=== PATIENT | female | born 1980 | race Caucasian/White ===

== ENCOUNTER 2016-06-22 15:40 | Emergency (ER) | payer MEDICAID ==
[~2016-06-22] VITALS: Ht 170.2 cm; Wt 80.0 kg
[~2016-06-22 15:40] MED LIST: ALBUAER3 INH; AZIT500T2 PO; PRED20 PO
[2016-06-22 15:42] VITALS: BP 175/90; PULSE 97; RESP 20; TEMP 97.7; O2SAT 96
[2016-06-22] MEDS ORDERED: ONDANSETRON ODT 4 MG TAB PO ONE (17:15)
--- NOTE | 2016-06-22 17:18 | PD ---
HPI Chief Complaint: Cold / Flu Symptoms Time Seen by Provider: 17:17 Travel History International Travel<30 days: No Contact w/Intl Traveler<30days: No Traveled to known affect area: No History of Present Illness HPI Patient is a 30 sexual female presenting to the emergency for evaluation of a sore throat, cough, body aches. Patient states she has not taken her temperature but felt warm. She reported that she vomited twice today once at 3 AM the second time in the lobby here. Patient has been eating and drinking normally. She denies any abdominal pain, chest pain, shortness of breath. She reports a dull headache, no visual changes no dizziness. PFSH Past Medical History Asthma: Yes High Cholesterol: Yes Diabetes: Yes Diminished Hearing: No Respiratory: Yes (ASTHMA) Immunizations Current: Yes LMP: 06/15/16 : 6 Para: 3 Miscarriage: 2 : 1 Dilation and Curettage (D&C): Yes (X2) Tubal Ligation: Yes Past Surgical History Abdominal Surgery: Yes (HERNIA, CHOLEY) Cholecystectomy: Yes Oral Surgery: Yes Social History Alcohol Use: Yes (OCC) Tobacco Use: Yes (1/2) Substance Use: No Allergies-Medications (Allergen,Severity, Reaction): Coded Allergies: Symbicort (Verified Allergy, Unknown, HIVES, 06/22/16) Tramadol (Verified Adverse Reaction, Mild, N/V, 06/22/16) Reported Meds & Prescriptions Reported Meds & Active Scripts Active Review of Systems Except as stated in HPI: all other systems reviewed are Neg General / Constitutional: Positive: Fever (subjective) HENT: Positive: Headaches, Sore Throat, Congestion Cardiovascular: No: Chest Pain or Discomfort Respiratory: Positive: Cough, No: Shortness of Breath, Wheezing Gastrointestinal: Positive: Vomiting (2), No: Nausea, Diarrhea, Abdominal Pain Genitourinary: No: Dysuria Musculoskeletal: Positive: Myalgias Neurologic: No: Weakness, Dizziness, Syncope Physical Exam Narrative GENERAL: Well-developed, well-nourished, alert female. Resting comfortably in no acute distress. SKIN: Focused skin assessment warm/dry. HEAD: Atraumatic. Normocephalic. EYES: Pupils equal and round. No scleral icterus. No injection or drainage. ENT: No nasal bleeding or discharge. Mucous membranes pink and moist. Mild erythema to posterior pharynx with cobblestoning appearance. NECK: Trachea midline. No JVD. CARDIOVASCULAR: Regular rate and rhythm. No murmur appreciated. RESPIRATORY: No accessory muscle use. Clear to auscultation. Breath sounds equal bilaterally. GASTROINTESTINAL: Abdomen soft, non-tender, nondistended. Hepatic and splenic margins not palpable. MUSCULOSKELETAL: No obvious deformities. No clubbing. No cyanosis. No edema. NEUROLOGICAL: Awake and alert. No obvious cranial nerve deficits. Motor grossly within normal limits. Normal speech. PSYCHIATRIC: Appropriate mood and affect; insight and judgment normal. Data Data Last Documented VS Vital Signs Date Time Temp Pulse Resp B/P Pulse Ox O2 Delivery O2 Flow Rate FiO2 06/22/16 15:42 97.7 97 20 175/90 96 Room Air Orders Influenzae A/B Antigen (06/22/16 17:06) Group A Rapid Strep Screen (06/22/16 17:06) Ondansetron Odt (Zofran Odt) (06/22/16 17:15) Strep Culture (Group A) (06/22/16 13:40) MDM Medical Decision Making Medical Screen Exam Complete: Yes Emergency Medical Condition: Yes Interpretation(s) Vital Signs Date Time Temp Pulse Resp B/P Pulse Ox O2 Delivery O2 Flow Rate FiO2 06/22/16 15:42 97.7 97 20 175/90 96 Room Air Differential Diagnosis Influenza versus viral URI versus pneumonia versus asthma exacerbation versus strep Narrative Course Patient is a 36 year old female presented to the emergency room for evaluation of cold of flulike symptoms that started on Saturday. Patient's vital signs are stable, she is afebrile. She took DayQuil earlier this morning. Influenza and strep screen ordered and pending. Patient did vomit twice but is denying any abdominal pain, abdominal exam is benign. Patient is negative for influenza A or strep pharyngitis. Discussed with patient that her symptoms are most consistent with a viral syndrome. She is encouraged to rest, maintain adequate fluid intake, and treat her symptoms. Patient will be provided with prescription for ibuprofen, Zofran, and a backup antibiotic. Patient was encouraged to avoid using the antibiotic unless her symptoms persisted beyond 5- 7 days. Advised to complete full course of antibiotics as prescribed if she did begin to take it. Additionally patient was encouraged to return to emergency department for any new or worsening symptoms. Patient verbalized understanding of these instructions. Patient is stable for discharge. Diagnosis Primary Impression: Viral syndrome Referrals: Primary Care Physician 1 week Patient Instructions: General Instructions, Viral Syndrome (ED) Additional Instructions: Follow-up with your primary doctor Take medications as directed Return to emergency department for any new or worsening symptoms Continue symptomatic management, maintain adequate fluid intake, rest If you begin the antibiotic please complete full course of therapy even if you begin to feel better Med/Other Pt SpecificInfo: Prescription(s) given Scripts Azithromycin 250 Mg [id number] Mg PO DIRECTED #6 TAB Ref 0 Take 2 tabs (500 mg) on day 1 then 1 tab daily x 4 days. Prov:Kanwal Schwartz 06/22/16 Ondansetron Odt (Zofran Odt)4 Mg Tab4 Mg SL Q6HR PRN (Nausea/Vomiting) 3 Days Ref 0 Prov:Kanwal Schwartz 06/22/16 Ibuprofen 800 Mg [id number] Mg PO Q6HR PRN (PAIN) #40 TAB Ref 0 Prov:Kanwal Schwartz 06/22/16 Disposition: 01 DISCHARGE HOME Condition: Stable Kanwal Schwartz Jun 22, 2016 17:18
[2016-06-22] MEDS ORDERED: AZIT250T3 PO (18:26)
[2016-06-22] MEDS ORDERED: IBUP800T23 PO (18:26)
[2016-06-22] MEDS ORDERED: ZOFR4TAB3 SL (18:26)
== END 2016-06-22 18:36 | disposition home or self-care (01) ==
LOC: NETRI 15:40
DX: B34.9 Viral infection, unspecified (principal); R11.10 Vomiting, unspecified; J45.909 Unspecified asthma, uncomplicated; E11.9 Type 2 diabetes mellitus without complications; F17.210 Nicotine dependence, cigarettes, uncomplicated
CPT/HCPCS: 87081; 87804; 87880; 99283

== ENCOUNTER 2017-04-17 17:12 | Inpatient (IN) | payer OTHER ==
[~2017-04-17] VITALS: Ht 167.6 cm; Wt 92.1 kg
[~2017-04-17 17:12] MED LIST changes: -ALBUAER3 INH; +AZIT250T3 PO; -AZIT500T2 PO; +IBUP1TAB7 PO; -PRED20 PO; +ZOFR4TAB3 SL
[2017-04-17 18:29] VITALS: BP 163/78; PULSE 73; RESP 18; TEMP 98.3; O2SAT 97
--- NOTE | 2017-04-17 19:06 | PD ---
HPI Chief Complaint: Psychiatric Symptoms Time Seen by Provider: 18:27 Travel History International Travel<30 days: No Contact w/Intl Traveler<30days: No Traveled to known affect area: No History of Present Illness HPI 36-year-old female that presents to the ED for evaluation of Cuevas act. Patient was Cuevas acted by police secondary to apparently get any nausea, for the patient with family and stating that she wanted to hurt herself. Per the report given to me by ED nurse and patient she went to the hospital yesterday and was told that she had a heart condition. Apparently she has family members that she feels are not helping her and she had breaking point today where she basically told the family that she wanted to end it all. She denies actual plan. Per patient she told this to try to get help. She denies any depression. No history of anxiety. No history of Cuevas act in the past. She has a history of hypertension, cholesterol and asthma. She denies any shortness of breath or chest pain at this time. No other medical issues. Per Cuevas act she apparently wrote a note and was stating that she wanted to end it all and this is what she was Cuevas acted. No other medical issues at this time. Apparently symptoms have been worsening secondary to stressors at home for the past couple of days. PFSH Past Medical History Asthma: Yes High Cholesterol: Yes Diabetes: Yes Diminished Hearing: No Respiratory: Yes (ASTHMA) Immunizations Current: Yes : 6 Para: 3 Miscarriage: 2 : 1 Dilation and Curettage (D&C): Yes (X2) Tubal Ligation: Yes Past Surgical History Abdominal Surgery: Yes (HERNIA, CHOLEY) Cholecystectomy: Yes Oral Surgery: Yes Social History Alcohol Use: Yes (OCC) Tobacco Use: Yes (1/2) Substance Use: No Allergies-Medications (Allergen,Severity, Reaction): Coded Allergies: budesonide (Unverified Allergy, Unknown, HIVES, 11/06/16) formoterol (Unverified Allergy, Unknown, HIVES, 11/06/16) tramadol (Unverified Adverse Reaction, Mild, N/V, 11/06/16) Reported Meds & Prescriptions Reported Meds & Active Scripts Active Zofran Odt (Ondansetron Odt) 4 Mg Tab 4 Mg SL Q6HR PRN 3 Days Ibuprofen 800 Mg Tab 800 Mg PO Q6HR PRN Review of Systems Except as stated in HPI: all other systems reviewed are Neg Physical Exam Narrative GENERAL: SKIN: Warm and dry. HEAD: Atraumatic. Normocephalic. EYES: Pupils equal and round. No scleral icterus. No injection or drainage. ENT: No nasal bleeding or discharge. Mucous membranes pink and moist. Tongue is midline. No uvula deviation. NECK: Trachea midline. No JVD. CARDIOVASCULAR: Regular rate and rhythm. No murmurs, S3, S4. RESPIRATORY: No accessory muscle use. Clear to auscultation. Breath sounds equal bilaterally. GASTROINTESTINAL: Abdomen soft, non-tender, nondistended. Hepatic and splenic margins not palpable. MUSCULOSKELETAL: Extremities without clubbing, cyanosis, or edema. No obvious deformities. Full range of motion of the upper and lower extremities bilaterally. 2+ pulses bilaterally. NEUROLOGICAL: Awake and alert. No obvious cranial nerve deficits. Motor grossly within normal limits. Five out of 5 muscle strength in the arms and legs. Normal speech. PSYCHIATRIC: Appropriate mood and affect; insight and judgment normal. Data Data Last Documented VS Vital Signs Date Time Temp Pulse Resp B/P (MAP) Pulse Ox O2 Delivery O2 Flow Rate FiO2 04/17/17 18:29 98.3 73 18 163/78 (106) 97 Room Air Orders Orders Complete Blood Count With Diff (04/17/17 18:17) Comprehensive Metabolic Panel (04/17/17 18:17) Thyroid Stimulating Hormone (04/17/17 18:17) Psych Screen (04/17/17 18:17) Drug Screen, Random Urine (04/17/17 18:17) Alcohol (Ethanol) (04/17/17 18:17) Salicylates (Aspirin) (04/17/17 18:17) Tylenol (Acetaminophen) (04/17/17 18:17) Urinalysis - C+S If Indicated (04/17/17 20:40) Chest, Single Ap (04/17/17 ) Ed Urine Pregnancytest Poc (04/17/17 21:56) Labs Laboratory Tests Test 04/17/17 19:30 04/17/17 19:48 White Blood Count 26.9 TH/MM3 Red Blood Count 5.47 MIL/MM3 Hemoglobin 15.5 GM/DL Hematocrit 47.4 % Mean Corpuscular Volume 86.5 FL Mean Corpuscular Hemoglobin 28.3 PG Mean Corpuscular Hemoglobin Concent 32.7 % Red Cell Distribution Width 14.0 % Platelet Count 410 TH/MM3 Mean Platelet Volume 8.0 FL Neutrophils (%) (Auto) 66.9 % Lymphocytes (%) (Auto) 26.1 % Monocytes (%) (Auto) 6.0 % Eosinophils (%) (Auto) 0.6 % Basophils (%) (Auto) 0.4 % Neutrophils # (Auto) 18.0 TH/MM3 Lymphocytes # (Auto) 7.0 TH/MM3 Monocytes # (Auto) 1.6 TH/MM3 Eosinophils # (Auto) 0.2 TH/MM3 Basophils # (Auto) 0.1 TH/MM3 CBC Comment AUTO DIFF Differential Total Cells Counted 100 Neutrophils % (Manual) 70 % Band Neutrophils % 2 % Lymphocytes % 24 % Monocytes % 4 % Neutrophils # (Manual) 19.4 TH/MM3 Differential Comment FINAL DIFF MANUAL Platelet Estimate NORMAL Platelet Morphology Comment NORMAL Blood Urea Nitrogen 14 MG/DL Creatinine 0.78 MG/DL Random Glucose 78 MG/DL Total Protein 8.0 GM/DL Albumin 4.0 GM/DL Calcium Level 9.3 MG/DL Alkaline Phosphatase 86 U/L Aspartate Amino Transf (AST/SGOT) 13 U/L Alanine Aminotransferase (ALT/SGPT) 33 U/L Total Bilirubin 0.3 MG/DL Sodium Level 140 MEQ/L Potassium Level 3.9 MEQ/L Chloride Level 103 MEQ/L Carbon Dioxide Level 27.3 MEQ/L Anion Gap 10 MEQ/L Estimat Glomerular Filtration Rate 84 ML/MIN Thyroid Stimulating Hormone 3rd Gen 1.320 uIU/ML Salicylates Level 3.0 MG/DL Acetaminophen Level LESS THAN 2.0 MCG/ML Ethyl Alcohol Level LESS THAN 3 MG/DL Urine Color YELLOW Urine Turbidity CLEAR Urine pH 6.0 Urine Specific [place] 1.015 Urine Protein NEG mg/dL Urine Glucose (UA) NEG mg/dL Urine Ketones NEG mg/dL Urine Occult Blood MOD Urine Nitrite NEG Urine Bilirubin NEG Urine Urobilinogen LESS THAN 2.0 MG/DL Urine Leukocyte Esterase NEG Urine RBC 74 /hpf Urine WBC 2 /hpf Urine Squamous Epithelial Cells 1 /hpf Urine Amorphous Sediment RARE Urine Mucus FEW /lpf Microscopic Urinalysis Comment CULT NOT INDICATED Urine Opiates Screen NEG Urine Barbiturates Screen NEG Urine Amphetamines Screen NEG Urine Benzodiazepines Screen NEG Urine Cocaine Screen NEG Urine Cannabinoids Screen NEG MDM Medical Decision Making Medical Screen Exam Complete: Yes Emergency Medical Condition: Yes Medical Record Reviewed: Yes Interpretation(s) CBC & BMP Diagram 04/17/17 19:30 Total Protein 8.0, Albumin 4.0, Calcium Level 9.3, Alkaline Phosphatase 86, Aspartate Amino Transf (AST/SGOT) 13 L, Alanine Aminotransferase (ALT/SGPT) 33, Total Bilirubin 0.3 tox negative Differential Diagnosis Depression versus suicidal ideation versus anxiety versus adjustment disorder versus mood disorder versus bipolar disorder versus schizophrenia versus paranoid disorder versus psychosis versus substance abuse versus alcohol abuse versus alcohol induced psychosis versus homicidality addition versus cutting versus personality disorder Narrative Course 36-year-old female that presents to the ED for evaluation of psych. Patient was properly examined and was found to have signs and symptoms consistent psychiatric illness. No sign of acute medical distress. Labs were drawn. Patient will be medically clear. Okay to be seen by psych. Labs did show elevated white blood cell count. Was able to get the records from the patient' s previous evaluation of the hospital on patient does have a more significant level sick count elevation at the time. She was given steroids. I evaluated the patient again to make sure she does not have anything acute but she does not appear to have any signs of acute distress. No signs of infection other than what appears to be possible bronchitis. Patient unfortunately because of her Cuevas acted and her being upset about being here at this hospital refuse any more medical care. I had a discussion about this with my attending Dr. Hernandez who was made aware of findings and agrees that at this time patient can't be medically clear. Mental health screening was discussed with the patient. Diagnosis Primary Impression: Mood disorder Gregory Torres Apr 17, 2017 19:06
[2017-04-17 20:26] LABS: BASOPHIL # 0.1 TH/MM3 (0-0.2); BASOPHIL % 0.4 % (0.0-2.0); EOSINOPHIL # 0.2 TH/MM3 (0-0.4); EOSINOPHIL % 0.6 % (0.0-4.0); HEMATOCRIT 47.4 % (35.0-46.0); HEMOGLOBIN 15.5 GM/DL (11.6-15.3); LYMPH % 26.1 % (9.0-44.0); MEAN CELL VOLUME 86.5 FL (80.0-100.0); MEAN CORPUSCULAR HEMOGLOBIN 28.3 PG (27.0-34.0); MEAN CORPUSCULAR HGB CONC 32.7 % (32.0-36.0); MONOCYTE # 1.6 TH/MM3 (0-0.9); NEUT % 66.9 % (16.0-70.0); PLATELET COUNT 410 TH/MM3 (150-450); RED BLOOD COUNT 5.47 MIL/MM3 (4.00-5.30); WHITE BLOOD COUNT 26.9 TH/MM3 (4.0-11.0)
[2017-04-17 20:39] LABS: AST (GOT) 13 U/L (15-37); BICARBONATE 27.3 MEQ/L (21.0-32.0); BLOOD UREA NITROGEN 14 MG/DL (7-18); CALCIUM 9.3 MG/DL (8.5-10.1); CHLORIDE 103 MEQ/L (98-107); CREATININE 0.78 MG/DL (0.50-1.00); GLOMERULAR FILTRATION RATE 84 ML/MIN (>89); GLUCOSE,RANDOM 78 MG/DL (74-106); SODIUM (NA) 140 MEQ/L (136-145)
[2017-04-17 20:51] LABS: ALKALINE PHOSPHATASE 86 U/L (45-117); ALT (GPT) 33 U/L (10-53); TOTAL BILIRUBIN ADULT 0.3 MG/DL (0.2-1.0)
[2017-04-17 20:56] LABS: ACETAMINOPHEN LESS THAN 2.0 MCG/ML (10.0-30.0)
[2017-04-17 21:29] LABS: AMORPHOUS SEDIMENT, URINE RARE; BILIRUBIN, URINE NEG (NEG); BLOOD, URINE MOD (NEG); GLUCOSE,URINE NEG (NEG); KETONE, URINE NEG (NEG); MUCUS URINE FEW /lpf (OCC); NITRITE,URINE NEG (NEG); SQUAMOUS EPITHELIAL CELL URINE 1 /hpf (0-5); URINE COLOR YELLOW (YELLW/STRAW); URINE LEUKOCYTE ESTERASE NEG (NEG)
--- NOTE | 2017-04-17 21:54 | RADRPT ---
EXAM DATE/TIME: 04/17/2017 20:45 [facility] COMPARISON: CHEST SINGLE AP, February 22, 2016, 10:51. INDICATIONS : Fever, left sided chest pain starting today MEDICAL HISTORY : None. SURGICAL HISTORY : None. ENCOUNTER: Initial ACUITY: 1 day PAIN SCORE: 8/10 LOCATION: Left chest FINDINGS: A single view of the chest demonstrates the lungs to be symmetrically aerated without evidence of mas s, infiltrate or effusion. The cardiomediastinal contours are unremarkable. Osseous structures are intact. CONCLUSION: No acute disease. No significant change has occurred. Obi Interiano MD on April 17, 2017 at 21:51 Board Certified Radiologist. This report was verified electronically.
[2017-04-17 22:25] LABS: BANDS 2 % (0-6); LYMPHOCYTES 24 % (9-44); MONOCYTES 4 % (0-8); NEUTROPHIL # MANUAL DIFF 19.4 TH/MM3 (1.8-7.7); POLYS (SEG NEUTROPHILS) 70 % (16-70)
[2017-04-17 23:48] VITALS: BP 118/74; PULSE 58; RESP 18; TEMP 98.9; O2SAT 99
[2017-04-18] MEDS ORDERED: ALUMINUM/MAGNESIUM/SIMETH 30 ML CUP PO PRN (01:30)
[2017-04-18] MEDS ORDERED: ACETAMINOPHEN 325 MG TAB PO PRN (01:30)
[2017-04-18] MEDS ORDERED: NICOTINE 21 MG/24 HR PATCH T-DERMAL PRN (01:30)
[2017-04-18] MEDS ORDERED: diphenhydrAMINE HCL 50 MG CAP PO PRN (01:30)
[2017-04-18] MEDS ORDERED: BENZTROPINE MESYLATE 2 MG/2 ML VIAL IM PRN (01:30)
[2017-04-18] MEDS ORDERED: LORazepam 2 MG/ML VIAL IM PRN (01:30)
[2017-04-18] MEDS ORDERED: LORazepam 1 MG TAB PO PRN (01:30)
[2017-04-18] MEDS ORDERED: MAGNESIUM HYDROXIDE SUSP 30 ML CUP PO PRN (01:30)
[2017-04-18] MEDS ORDERED: BENZTROPINE MESYLATE 1 MG TAB PO PRN (01:30)
[2017-04-18 03:33] VITALS: BP 152/90; PULSE 74; RESP 18; TEMP 97.7; O2SAT 97
[2017-04-18 06:01] VITALS: BP 152/90; PULSE 74; RESP 18; TEMP 97.7; O2SAT 97
[2017-04-18 07:22] LABS: AUTOMATED NEUTROPHIL # 11.9 TH/MM3 (1.8-7.7); BASOPHIL # 0.1 TH/MM3 (0-0.2); BASOPHIL % 0.5 % (0.0-2.0); EOSINOPHIL # 0.4 TH/MM3 (0-0.4); EOSINOPHIL % 1.7 % (0.0-4.0); HEMATOCRIT 43.5 % (35.0-46.0); HEMOGLOBIN 14.3 GM/DL (11.6-15.3); LYMPH % 38.9 % (9.0-44.0); LYMPHOCYTE # 8.8 TH/MM3 (1.0-4.8); MEAN CELL VOLUME 85.6 FL (80.0-100.0); MEAN CORPUSCULAR HEMOGLOBIN 28.2 PG (27.0-34.0); MEAN CORPUSCULAR HGB CONC 32.9 % (32.0-36.0); MEAN PLATELET VOLUME 7.7 FL (7.0-11.0); MONO % 6.5 % (0.0-8.0); MONOCYTE # 1.5 TH/MM3 (0-0.9); NEUT % 52.4 % (16.0-70.0); PLATELET COUNT 341 TH/MM3 (150-450); RED BLOOD COUNT 5.07 MIL/MM3 (4.00-5.30); RED CELL DISTRIBUTION WIDTH 13.9 % (11.6-17.2); WHITE BLOOD COUNT 22.7 TH/MM3 (4.0-11.0)
[2017-04-18 08:05] LABS: BICARBONATE 28.5 MEQ/L (21.0-32.0); CALCIUM 8.5 MG/DL (8.5-10.1); CHOLESTEROL/ HDL RATIO 4.85 RATIO; CREATININE 0.77 MG/DL (0.50-1.00)
[2017-04-18] MEDS ORDERED: POTASSIUM CHLORIDE 20 MEQ CONTROLLED RELEASE TAB PO ONE (09:00)
[2017-04-18] MEDS ORDERED: ENALAPRILAT 1.25 MG/ML VIAL IV PUSH PRN (09:00)
[2017-04-18] MEDS ORDERED: RESP: ALBUTEROL 2.5 MG/IPRATROPIUM 0.5 MG NEB (PRN) NEB (09:00)
[2017-04-18] MEDS ORDERED: ALBUTEROL SULFATE 90 MCG/ACT HFA 8 GM INHALER INH PRN (09:00)
--- NOTE | 2017-04-18 09:00 | PD.CONS ---
[facility] Request[facility] By Dr. Argueta Reason for Consult Medical management Primary Care Physician Unknown Diagnoses: History of Present Illness Pt is a 36 yr old female w PMHx of asthma, HTN, DM, hypercholesterolemia is admitted under Backer Act for suicidal ideation to the med/psych unit. Pt very upset to be here and doesn't want to answer most of my questions. States that this "is all a misunderstanding" and that she shouldn't be here. When I ask more history she states "do I have to answer all these questions now? I have already said these things many times". I did explain to patient that I am consulted as part of the medical team and she only tells me that she was treated w steroids and abx for her cough which she feels is about the same. denies any sore throat, runny nose, fevers or chills, abdominal pain. Pt asks RN if she can be transferred to her "own room" where it is dark and quiet. After further questioning she did tell me that at [facility] they did an EKG and told her she needed to see a media marketing specialist but wasn't told why. Review of Systems ROS Limitations: Uncooperative, Poor Historian Except as stated in HPI: all other systems reviewed are Neg (from what I was able to gather through my history) Past Family Social History Allergies: Coded Allergies: budesonide (Unverified Allergy, Unknown, HIVES, 11/06/16) formoterol (Unverified Allergy, Unknown, HIVES, 11/06/16) tramadol (Unverified Adverse Reaction, Mild, N/V, 11/06/16) Past Medical History HTN, DM, hypercholesterolemia, asthma Past Surgical History cholecystectomy, hernia repair, tubal ligation Reported Medications Reported Meds & Active Scripts Active Zofran Odt (Ondansetron Odt) 4 Mg Tab 4 Mg SL Q6HR PRN 3 Days Ibuprofen 800 Mg Tab 800 Mg PO Q6HR PRN Family History didn't want to answer at first but does states that heart disease, DM, hypercholesterolemia and asthma run in the family Social History smokes 4 cigs to 2ppd depending on "her mood" denies any alcohol or illegal drug use Physical Exam Vital Signs Vital Signs Date Time Temp Pulse Resp B/P (MAP) Pulse Ox O2 Delivery O2 Flow Rate FiO2 04/18/17 06:01 97.7 74 18 152/90 (110) 97 04/18/17 03:33 97.7 74 18 152/90 (110) 97 04/18/17 02:28 04/17/17 23:48 98.9 58 18 118/74 (89) 99 Room Air 04/17/17 18:29 98.3 73 18 163/78 (106) 97 Room Air Physical Exam GENERAL: This is a female, sitting up in bed, appears upset SKIN: dry. HEAD: Atraumatic. Normocephalic. No temporal or scalp tenderness. EYES: Pupils equal round and reactive. Extraocular motions intact. ENT: Nose without drainage. Throat without erythema, tonsillar hypertrophy or exudate. Uvula midline. Airway patent. NECK: Trachea midline. CARDIOVASCULAR: Regular rate and rhythm without murmurs RESPIRATORY: Clear to auscultation. Breath sounds equal bilaterally. No wheezes GASTROINTESTINAL: Abdomen soft, non-tender, nondistended. No palpable masses. No guarding. MUSCULOSKELETAL: moves all extremities. NEUROLOGICAL: Awake and alert. Normal speech. Laboratory Laboratory Tests Test 04/17/17 19:30 04/17/17 19:48 04/18/17 07:00 White Blood Count 26.9 22.7 Red Blood Count 5.47 5.07 Hemoglobin 15.5 14.3 Hematocrit 47.4 43.5 Mean Corpuscular Volume 86.5 85.6 Mean Corpuscular Hemoglobin 28.3 28.2 Mean Corpuscular Hemoglobin Concent 32.7 32.9 Red Cell Distribution Width 14.0 13.9 Platelet Count 410 341 Mean Platelet Volume 8.0 7.7 Neutrophils (%) (Auto) 66.9 52.4 Lymphocytes (%) (Auto) 26.1 38.9 Monocytes (%) (Auto) 6.0 6.5 Eosinophils (%) (Auto) 0.6 1.7 Basophils (%) (Auto) 0.4 0.5 Neutrophils # (Auto) 18.0 11.9 Lymphocytes # (Auto) 7.0 8.8 Monocytes # (Auto) 1.6 1.5 Eosinophils # (Auto) 0.2 0.4 Basophils # (Auto) 0.1 0.1 CBC Comment AUTO DIFF AUTO DIFF Differential Total Cells Counted 100 Neutrophils % (Manual) 70 Band Neutrophils % 2 Lymphocytes % 24 Monocytes % 4 Neutrophils # (Manual) 19.4 Differential Comment FINAL DIFF MANUAL Platelet Estimate NORMAL Platelet Morphology Comment NORMAL Blood Urea Nitrogen 14 15 Creatinine 0.78 0.77 Random Glucose 78 91 Total Protein 8.0 Albumin 4.0 Calcium Level 9.3 8.5 Alkaline Phosphatase 86 Aspartate Amino Transf (AST/SGOT) 13 Alanine Aminotransferase (ALT/SGPT) 33 Total Bilirubin 0.3 Sodium Level 140 139 Potassium Level 3.9 3.4 Chloride Level 103 105 Carbon Dioxide Level 27.3 28.5 Anion Gap 10 6 Estimat Glomerular Filtration Rate 84 85 Thyroid Stimulating Hormone 3rd Gen 1.320 Beta HCG, Qualitative LESS THAN 1 Salicylates Level 3.0 Acetaminophen Level LESS THAN 2.0 Ethyl Alcohol Level LESS THAN 3 Urine Color YELLOW Urine Turbidity CLEAR Urine pH 6.0 Urine Specific [place] 1.015 Urine Protein NEG Urine Glucose (UA) NEG Urine Ketones NEG Urine Occult Blood MOD Urine Nitrite NEG Urine Bilirubin NEG Urine Urobilinogen LESS THAN 2.0 Urine Leukocyte Esterase NEG Urine RBC 74 Urine WBC 2 Urine Squamous Epithelial Cells 1 Urine Amorphous Sediment RARE Urine Mucus FEW Microscopic Urinalysis Comment CULT NOT INDICATED Urine Opiates Screen NEG Urine Barbiturates Screen NEG Urine Amphetamines Screen NEG Urine Benzodiazepines Screen NEG Urine Cocaine Screen NEG Urine Cannabinoids Screen NEG Triglycerides Level 267 Cholesterol Level 238 LDL Cholesterol 136 HDL Cholesterol 49.0 Cholesterol/HDL Ratio 4.85 Result Diagram: 04/18/17 0700 04/18/17 0700 Imaging Last Impressions Chest X-Ray 04/17/17 0000 Signed Impressions: Service Date/Time: Monday, April 17, 2017 20:45 - CONCLUSION: No acute disease. No significant change has occurred. Obi Interiano MD Assessment and Plan Assessment and Plan Suicidal ideation: under [place] Act. Management per psychiatry. Leukocytosis: WBC on admission was 26.9 now down to 22.7. Pt was recently treated w 3 days of steroids. this would most likely explain the elevated white count. Pt is afebrile, chest x-ray neg, u/a neg. no other sources of infection other than possible bronchitis which she is currently on azithromycin. I did order a peripheral smear. At this time, will continue to monitor, check CBC in AM. Mild hypokalemia: replaced. Asthma: stable. add duonebs prn. albuterol inh prn HTN: BPs in the 150-160"s. per pt she is not on any meds at home. I have started her on amlodipine 5mg po daily. add vasotec prn Hypercholesterolemia: TG 267, LDL 137, and HDL 49. Will place pt on low fat/ heart healthy diet ? heart problem: per pt she was told at [facility] that she needed to see a media marketing specialist, but she doesn't know why. will check EKG as we don't have anything on file. Per [place] records there is no mention of a cardiac diagnosis. Monitor as pt currently asymptomatic. Thank you for allowing me to take part of Mrs Garsia's care, the hospitalist service will continue to follow. Discussed Condition With patient, RN and Michell Lopez MD Apr 18, 2017 09:00
[2017-04-18 09:27] LABS: LYMPHOCYTES 39 % (9-44); MONOCYTES 3 % (0-8); NEUTROPHIL # MANUAL DIFF 12.5 TH/MM3 (1.8-7.7); POLYS (SEG NEUTROPHILS) 55 % (16-70)
[2017-04-18] MEDS: AZITHROMYCIN 250 MG TAB PO SCH (10:36)
[2017-04-18] MEDS: amLODIPine BESYLATE 5 MG TAB PO SCH (10:37)
[2017-04-18] MEDS: SERTRALINE HCL 50 MG TAB PO SCH (10:37)
[2017-04-18] MEDS: REMOVE OLD PATCH-NICOTINE T-DERMAL SCH (10:43)
--- NOTE | 2017-04-18 12:09 | PD.PSY.CON ---
Provisional Diagnosis Admission Date Apr 18, 2017 at 01:17 [place] I. Adjustment disorder with depressed mood vs major depressive disorder, single episode, severe without psychosis [place] II. Deferred [place] III. Asthma [place] IV. Family dynamic conflicts, history of bipolar disorder in the family [place] V. 45 History of Present Illness Service Psychiatry Consult Requested By Dr. Argueta Reason for Consult Second opinion Primary Care Physician Unknown HPI The patient is a 36-year-old woman, domiciled in [facility] with her fianc and 3 kids, unemployed, without no previous psychiatric history, no previous psychotic hospitalizations, no previous suicidal attempts, she denies the use of recreational drugs or alcohol, medical history of asthma, who initially presented to the ED for evaluation of Cuevas act. Patient was Cuevas acted by police secondary to apparently get any nausea, for the patient with family and stating that she wanted to hurt herself. Per the report given to me by ED nurse and patient she went to the hospital yesterday and was told that she had a heart condition. Apparently she has family members that she feels are not helping her and she had breaking point today where she basically told the family that she wanted to end it all. She denies actual plan. Per patient she told this to try to get help. Patient was admitted by Dr. Argueta. Was consulted to be for second opinion. On psychiatric evaluation today the patient is irritable, kind of oppositional, but could be engaged in a conversation. She reports that she is here for a mistake she did. She says that she was very frustrated and overwhelmed with her kids and her fianc. She wrote a suicide letter "just to get the attention and left the no home at I was , but my plan was not to commit suicide". She reports angry mood at the moment , she said that she feels very irritable and edgy, however, she denies suicidal and homicidal ideation, she denies visual and auditory hallucinations. The patient is logical, she is coherent and relevant. Oriented 3, she does confirm that she has been feeling down in the last month "due to economical situation and persistent conflicts with the family". She denies the use of illegal drugs and alcohol. Review of Systems Constitutional: DENIES: Diaphoretic episodes, Fatigue, Fever, Weight gain, Weight loss, Chills, Dizziness, Change in appetite, Night Sweats Endocrine: DENIES: Abnorml menstrual pattern, Heat/cold intolerance, Polydipsia , Polyuria, Polyphagia Eyes: DENIES: Blurred vision, Diplopia, Eye inflammation, Eye pain, Vision loss , Photosensitivity, Double Vision Ears, nose, mouth, throat: DENIES: Tinnitus, Hearing loss, Vertigo, Nasal discharge, Oral lesions, Throat pain, Hoarseness, Ear Pain, Running Nose, Epistaxis, Sinus Pain, Toothache, Odynophagia Respiratory: DENIES: Apneas, Cough, Snoring, Wheezing, Hemoptysis, Sputum production, Shortness of breath Cardiovascular: DENIES: Chest pain, Palpitations, Syncope, Dyspnea on Exertion , PND, Lower Extremity Edema, Orthopnea, Claudication Gastrointestinal: DENIES: Abdominal pain, Black stools, Bloody stools, Constipation, Diarrhea, Nausea, Vomiting, Difficulty Swallowing, Anorexia Genitourinary: DENIES: Abnormal vaginal bleeding, Dysmenorrhea, Dyspareunia, Sexual dysfunction, Urinary frequency, Urinary incontinence, Urgency, Hematuria , Dysuria, Nocturia, Vaginal discharge Musculoskeletal: DENIES: Joint pain, Muscle aches, Stiffness, Joint Swelling, Back pain, Neck pain Integumentary: DENIES: Abnormal pigmentation, Pruritus, Rash, Nail changes, Breast masses, Breast skin changes, Nipple discharge Hematologic/lymphatic: DENIES: Bruising, Lymphadenopathy Immunologic/allergic: DENIES: Eczema, Urticaria Neurologic: DENIES: Abnormal gait, Headache, Localized weakness, Paresthesias, Seizures, Speech Problems, Tremor, Poor Balance Psychiatric: COMPLAINS OF: Mood changes, Depression, DENIES: Anxiety, Confusion , Hallucinations, Agitation, Suicidal Ideation, Homicidal Ideation, Delusions Past Family Social History Coded Allergies: budesonide (Unverified Allergy, Unknown, HIVES, 11/06/16) formoterol (Unverified Allergy, Unknown, HIVES, 11/06/16) tramadol (Unverified Adverse Reaction, Mild, N/V, 11/06/16) Active Scripts Ondansetron Odt (Zofran Odt) 4 Mg Tab, 4 MG SL Q6HR Y for Nausea/Vomiting for 3 Days, TAB 0 Refills Prov:Kanwal Schwartz 06/22/16 Ibuprofen (Ibuprofen) 800 Mg Tab, 800 MG PO Q6HR Y for PAIN, #40 TAB 0 Refills Prov:Kanwal Schwartz 06/22/16 Discontinued Scripts Azithromycin (Azithromycin) 250 Mg Tab, 250 MG PO DIRECTED for Infection, #6 TAB 0 Refills Take 2 tabs (500 mg) on day 1 then 1 tab daily x 4 days. Prov:Kanwal Schwartz JOURDAN 06/22/16 Current Medications Medications (Trade) Dose Ordered Sig/Missy Route Start Time Stop Time Status Last Admin (Zithromax) 250 mg DAILY PO 04/18/17 09:00 04/18/17 10:36 (Ativan) 0.5 mg Q6H PRN PO 04/18/17 01:30 04/18/17 10:37 (Ativan Inj) 0.5 mg Q6H PRN IM 04/18/17 01:30 (Benadryl) 50 mg HS PRN PO 04/18/17 01:30 (Tylenol) 650 mg Q4H PRN PO 04/18/17 01:30 04/18/17 10:42 (Milk Of Magnesia Liq) 30 ml DAILY PRN PO 04/18/17 01:30 (Mag-Al Plus Susp Liq) 30 ml Q6H PRN PO 04/18/17 01:30 (Habitrol 21 Mg Patch.24 Hr) 1 patch DAILY PRN T-DERMAL 04/18/17 01:30 (Cogentin) 1 mg Q12H PRN PO 04/18/17 01:30 (Cogentin Inj) 1 mg Q12H PRN IM 04/18/17 01:30 Miscellaneous Information 1 DAILY T-DERMAL 04/18/17 09:00 (Norvasc) 5 mg DAILY PO 04/18/17 09:00 04/18/17 10:37 (Vasotec Inj) 1.25 mg Q6H PRN IV PUSH 04/18/17 09:00 (Duoneb Neb) 1 ampule Q6HR NEB PRN NEB 04/18/17 09:00 (Proair Hfa Inh) 2 puff Q6H PRN INH 04/18/17 09:00 (Zoloft) 50 mg DAILY PO 04/18/17 09:00 04/18/17 10:37 Family Psych History Patient has a sister with bipolar disorder Social History She was born in [place], she lives in [facility] with her fianc and 3 kids, she is unemployed, highest level of education is in Physical Exam Vital Signs Vital Signs Date Time Temp Pulse Resp B/P (MAP) Pulse Ox O2 Delivery O2 Flow Rate FiO2 04/18/17 06:01 97.7 74 18 152/90 (110) 97 04/17/17 23:48 Room Air I/O 04/18/17 04/18/17 04/19/17 08:00 16:00 00:00 Intake Total 360 ml Balance 360 ml Lab Results Test 04/17/17 19:30 04/17/17 19:48 04/18/17 07:00 White Blood Count 26.9 TH/MM3 22.7 TH/MM3 Red Blood Count 5.47 MIL/MM3 5.07 MIL/MM3 Hemoglobin 15.5 GM/DL 14.3 GM/DL Hematocrit 47.4 % 43.5 % Mean Corpuscular Volume 86.5 FL 85.6 FL Mean Corpuscular Hemoglobin 28.3 PG 28.2 PG Mean Corpuscular Hemoglobin Concent 32.7 % 32.9 % Red Cell Distribution Width 14.0 % 13.9 % Platelet Count 410 TH/MM3 341 TH/MM3 Mean Platelet Volume 8.0 FL 7.7 FL Neutrophils (%) (Auto) 66.9 % 52.4 % Lymphocytes (%) (Auto) 26.1 % 38.9 % Monocytes (%) (Auto) 6.0 % 6.5 % Eosinophils (%) (Auto) 0.6 % 1.7 % Basophils (%) (Auto) 0.4 % 0.5 % Neutrophils # (Auto) 18.0 TH/MM3 11.9 TH/MM3 Lymphocytes # (Auto) 7.0 TH/MM3 8.8 TH/MM3 Monocytes # (Auto) 1.6 TH/MM3 1.5 TH/MM3 Eosinophils # (Auto) 0.2 TH/MM3 0.4 TH/MM3 Basophils # (Auto) 0.1 TH/MM3 0.1 TH/MM3 CBC Comment AUTO DIFF AUTO DIFF Differential Total Cells Counted 100 100 Neutrophils % (Manual) 70 % 55 % Band Neutrophils % 2 % Lymphocytes % 24 % 39 % Monocytes % 4 % 3 % Neutrophils # (Manual) 19.4 TH/MM3 12.5 TH/MM3 Differential Comment FINAL DIFF MANUAL FINAL DIFF MANUAL Platelet Estimate NORMAL NORMAL Platelet Morphology Comment NORMAL NORMAL Blood Urea Nitrogen 14 MG/DL 15 MG/DL Creatinine 0.78 MG/DL 0.77 MG/DL Random Glucose 78 MG/DL 91 MG/DL Total Protein 8.0 GM/DL Albumin 4.0 GM/DL Calcium Level 9.3 MG/DL 8.5 MG/DL Alkaline Phosphatase 86 U/L Aspartate Amino Transf (AST/SGOT) 13 U/L Alanine Aminotransferase (ALT/SGPT) 33 U/L Total Bilirubin 0.3 MG/DL Sodium Level 140 MEQ/L 139 MEQ/L Potassium Level 3.9 MEQ/L 3.4 MEQ/L Chloride Level 103 MEQ/L 105 MEQ/L Carbon Dioxide Level 27.3 MEQ/L 28.5 MEQ/L Anion Gap 10 MEQ/L 6 MEQ/L Estimat Glomerular Filtration Rate 84 ML/MIN 85 ML/MIN Thyroid Stimulating Hormone 3rd Gen 1.320 uIU/ML Beta HCG, Qualitative LESS THAN 1 MIU/ML Salicylates Level 3.0 MG/DL Acetaminophen Level LESS THAN 2.0 MCG/ML Ethyl Alcohol Level LESS THAN 3 MG/DL Urine Color YELLOW Urine Turbidity CLEAR Urine pH 6.0 Urine Specific [place] 1.015 Urine Protein NEG mg/dL Urine Glucose (UA) NEG mg/dL Urine Ketones NEG mg/dL Urine Occult Blood MOD Urine Nitrite NEG Urine Bilirubin NEG Urine Urobilinogen LESS THAN 2.0 MG/DL Urine Leukocyte Esterase NEG Urine RBC 74 /hpf Urine WBC 2 /hpf Urine Squamous Epithelial Cells 1 /hpf Urine Amorphous Sediment RARE Urine Mucus FEW /lpf Microscopic Urinalysis Comment CULT NOT INDICATED Urine Opiates Screen NEG Urine Barbiturates Screen NEG Urine Amphetamines Screen NEG Urine Benzodiazepines Screen NEG Urine Cocaine Screen NEG Urine Cannabinoids Screen NEG Eosinophils % 3 % Red Cell Morphology Comment NORMAL Blood Smear Pathologist Review Triglycerides Level 267 MG/DL Cholesterol Level 238 MG/DL LDL Cholesterol 136 MG/DL HDL Cholesterol 49.0 MG/DL Cholesterol/HDL Ratio 4.85 RATIO Mental Status Examination Appearance: Appropriate Consciousness: Alert Orientation: x4 Motor Activity: Normal gait Speech: Unremarkable Language: Adequate Fund of Knowledge: Adequate Attention and Concentration: Adequate Memory: Unremarkable Mood: Sad Affect: Irritable Thought Process & Associations: Intact Thought Content: Appropriate Hallucination Type: None Delusion Type: None Suicidal Ideation: No Suicidal Plan: No Suicidal Intention: No Homicidal Ideation: No Homicidal Plan: No Homicidal Intention: No Insight: Poor Judgment: Poor Assessment & Plan Problem List: (1) Adjustment disorder with depressed mood ICD Codes: F43.21 - Adjustment disorder with depressed mood Assessment & Plan: I have seen and examined this patient. Reviewed the documentation, discussed with Dr. Argueta. I agree and concur with his assessment and plan. Assessment & Plan Estimated LOS: Madi Rivera MD Apr 18, 2017 12:09
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
[2017-04-18 16:35] LABS: HEMOGLOBIN A1C 5.8 % (4.3-6.0)
[2017-04-18 19:12] VITALS: BP 126/68; PULSE 86; RESP 18; TEMP 97.9; O2SAT 97
[2017-04-19 06:07] VITALS: BP 132/79; PULSE 65; RESP 16; TEMP 97.9; O2SAT 97
[2017-04-19 07:47] LABS: AUTOMATED NEUTROPHIL # 8.4 TH/MM3 (1.8-7.7); BASOPHIL # 0.1 TH/MM3 (0-0.2); BASOPHIL % 0.6 % (0.0-2.0); EOSINOPHIL # 0.4 TH/MM3 (0-0.4); EOSINOPHIL % 2.5 % (0.0-4.0); HEMATOCRIT 43.5 % (35.0-46.0); HEMOGLOBIN 14.6 GM/DL (11.6-15.3); LYMPH % 39.4 % (9.0-44.0); LYMPHOCYTE # 6.5 TH/MM3 (1.0-4.8); MEAN CELL VOLUME 86.2 FL (80.0-100.0); MEAN CORPUSCULAR HGB CONC 33.6 % (32.0-36.0); MONO % 6.2 % (0.0-8.0); NEUT % 51.3 % (16.0-70.0); PLATELET COUNT 366 TH/MM3 (150-450); RED BLOOD COUNT 5.05 MIL/MM3 (4.00-5.30); RED CELL DISTRIBUTION WIDTH 13.8 % (11.6-17.2); WHITE BLOOD COUNT 16.4 TH/MM3 (4.0-11.0)
--- NOTE | 2017-04-19 07:56 | HHI.PYPN ---
Subjective Remarks Patient seen for follow-up, chart reviewed. Discussion she staff reported the patient slept well with no behavioral disturbances. Patient was found lying in hospital bed noted to be calm and cooperative. Patient states stated that she had steps to last evening but feels fairly rested today. Patient continues to have headaches which she takes, last evening which helped. Patient reports her mood being "good" but didn't stay being "emotional last night" after she had visit from her fianc which went well but had a phone call from her sister which she was upset about. Patient states that her reason to live our for her kids and wanting to see them graduate as well as her wanted to visit certain places travel. Patient this time denies any SI, HI, AVH or delusions. Review of Systems Except as stated in HPI: all other systems reviewed are Neg Mental Status Examination Appearance: Appropriate Consciousness: Alert Orientation: x4 Motor Activity: Normal gait Speech: Unremarkable Language: Adequate Fund of Knowledge: Adequate Attention and Concentration: Adequate Memory: Unremarkable Mood: Sad Affect: Sad Thought Process & Associations: Intact Thought Content: Appropriate Hallucination Type: None Delusion Type: None Suicidal Ideation: No Suicidal Plan: No Suicidal Intention: No Homicidal Ideation: No Homicidal Plan: No Homicidal Intention: No Insight: Poor Judgment: Poor Results Labs Test 04/19/17 06:40 Vitals/IOs Vital Signs Date Time Temp Pulse Resp B/P (MAP) Pulse Ox O2 Delivery O2 Flow Rate FiO2 04/19/17 06:07 97.9 65 16 132/79 (96) 97 04/17/17 23:48 Room Air Assessment & Plan Problem List: (1) Adjustment disorder with depressed mood ICD Codes: F43.21 - Adjustment disorder with depressed mood Assessment & Plan Patient this time continues to be noted to be tearful during interview, depressed but denying suicidal ideations at this time. We'll add trazodone 50 mg by mouth at bedtime for sleep disturbance, continue sertraline 50 mg by mouth daily for depression. Continue to monitor mood and behavior. Continue to encourage patient to participate in groups and activities and maintain personal hygiene on the unit. Discharge planning in progress Justification for Cont. Inpt. At risk for further decompensation if at lower level of care Discharge Planning Back to her residence aMrcos Argueta MD Apr 19, 2017 07:56
--- NOTE | 2017-04-19 08:42 | HHI.PR ---
Subjective Remarks Patient is in the bed she appears in acute distress at this time. She complains of frontal headaches on and off. No change in vision no motor or sensory deficit. Denies any chest pain or shortness of breath nausea vomiting diarrhea constipation. No fever or chills. Eating fairly well. Objective Vitals Vital Signs Date Time Temp Pulse Resp B/P (MAP) Pulse Ox O2 Delivery O2 Flow Rate FiO2 04/19/17 06:07 97.9 65 16 132/79 (96) 97 04/18/17 19:12 97.9 86 18 126/68 (87) 97 I/O 04/18/17 04/18/17 04/18/17 04/19/17 04/19/17 04/19/17 07:00 15:00 23:00 07:00 15:00 23:00 Intake Total 360 ml 960 ml Balance 360 ml 960 ml Intake Oral 360 ml 960 ml Result Diagram: 04/19/17 0640 04/18/17 0700 Imaging Last Impressions Chest X-Ray 04/17/17 0000 Signed Impressions: Service Date/Time: Monday, April 17, 2017 20:45 - CONCLUSION: No acute disease. No significant change has occurred. Obi Interiano MD Objective Remarks GENERAL: This is a female, in the bed, appears n nad. HEAD: Atraumatic. Normocephalic. No temporal or scalp tenderness. EYES: Pupils equal round and reactive. Extraocular motions intact. CARDIOVASCULAR: Regular rate and rhythm without murmurs RESPIRATORY: Clear to auscultation. Breath sounds equal bilaterally. No wheezes GASTROINTESTINAL: Abdomen soft, non-tender, nondistended. No palpable masses. No guarding. MUSCULOSKELETAL: moves all extremities. NEUROLOGICAL: Awake and alert. Normal speech. A/P Assessment and Plan Suicidal ideation: under [employer] Act. Management per psychiatry. Leukocytosis: WBC on admission was 26.9 trending down. 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 Pt is afebrile, chest x-ray neg, u/a neg. No other sources of infection other than possible bronchitis which she is currently on azithromycin. Peripheral smear reviewed and normal. At this time, will continue to monitor, check CBC in AM. Mild hypokalemia: replaced. Asthma: stable. add duonebs prn. albuterol inh prn HTN: BPs in the 150-160"s on admission. Per pt she is not on any meds at home. BP better controlled, continue to monitor and adjust meds as need. Continue amlodipine 5mg po daily, vasotec prn Hypercholesterolemia: TG 267, LDL 137, and HDL 49. Will place pt on low fat/ heart healthy diet ? heart problem: per pt she was told at [facility] that she needed to see a it communications specialist, but she doesn't know why. EKG normal. Per [place] records there is no mention of a cardiac diagnosis. Monitor as pt currently asymptomatic. Thank you for allowing me to take part of Mrs Garsia's care, we will continue to follow. Discussed Condition With patient, nurse Lucía Simpson MD Apr 19, 2017 08:42
[2017-04-19] MEDS: amLODIPine BESYLATE 5 MG TAB PO SCH (08:48)
[2017-04-19] MEDS: AZITHROMYCIN 250 MG TAB PO SCH (08:48)
[2017-04-19] MEDS: SERTRALINE HCL 50 MG TAB PO SCH (08:48)
[2017-04-19 08:50] LABS: BANDS 2 % (0-6); LYMPHOCYTES 40 % (9-44); METAMYELOCYTES 1 % (0-1); MONOCYTES 4 % (0-8); MYELOCYTES 1 % (0-0); POLYS (SEG NEUTROPHILS) 51 % (16-70)
[2017-04-19] MEDS: REMOVE OLD PATCH-NICOTINE T-DERMAL SCH (09:00)
--- NOTE | 2017-04-19 10:27 | EKG ---
Date Performed: 04/18/2017 Time Performed: 12:07:47 PTAGE: 36 years EKG: Sinus rhythm NONSPECIFIC T-WAVE ABNORMALITY BORDERLINE ECG NO PREVIOUS TRACING DOCTOR: Reji Leon Interpretating Date/Time 04/19/2017 10:26:15
[2017-04-19] MEDS: traZODone HCL 50 MG TAB PO SCH (21:29)
[2017-04-20 05:54] VITALS: BP 133/73; PULSE 65; RESP 18; TEMP 97.4; O2SAT 96
--- NOTE | 2017-04-20 07:59 | HHI.PYPN ---
Subjective Remarks Patient seen in her room with nurse Akiko, chart reviewed, patient compliant medications. Patient laying in bed with a somewhat guarded irritable attitude. Drinks some resistance to discussing the reasons for this hospitalization. Except as a she has teenagers. She did denies suicidality to me at this time. For now continue treatment no change Review of Systems Except as stated in HPI: all other systems reviewed are Neg Mental Status Examination Appearance: Appropriate Consciousness: Alert Orientation: x4 Motor Activity: Normal gait Speech: Unremarkable Language: Adequate Fund of Knowledge: Adequate Attention and Concentration: Adequate Memory: Unremarkable Mood: Sad Affect: Sad Thought Process & Associations: Intact Thought Content: Appropriate Hallucination Type: None Delusion Type: None Suicidal Ideation: No Suicidal Plan: No Suicidal Intention: No Homicidal Ideation: No Homicidal Plan: No Homicidal Intention: No Insight: Poor Judgment: Poor Results Vitals/IOs Vital Signs Date Time Temp Pulse Resp B/P (MAP) Pulse Ox O2 Delivery O2 Flow Rate FiO2 04/20/17 05:54 97.4 65 18 133/73 (93) 96 04/17/17 23:48 Room Air Assessment & Plan Problem List: (1) Adjustment disorder with depressed mood ICD Codes: F43.21 - Adjustment disorder with depressed mood Assessment & Plan Estimated LOS: days patient continues depressed somewhat irritable. All denies suicidality mood remains intense angry and depressed now continue treatment Justification for Cont. Inpt. At this time patient will decompensate and placed in the lower level of care Discharge Planning Probable return home to family Vu Nguyễn MD Apr 20, 2017 07:59
--- NOTE | 2017-04-20 08:02 | HHI.PR ---
Subjective Remarks Patient is sleepy. Urine distress. Still with headaches, improving some. No fever or chills, denies cough, no nausea or vomiting no diarrhea or constipation. Objective Vitals Vital Signs Date Time Temp Pulse Resp B/P (MAP) Pulse Ox O2 Delivery O2 Flow Rate FiO2 04/20/17 05:54 97.4 65 18 133/73 (93) 96 I/O 04/19/17 04/19/17 04/19/17 04/20/17 04/20/17 04/20/17 07:00 15:00 23:00 07:00 15:00 23:00 Intake Total 720 ml Balance 720 ml Intake Oral 720 ml Result Diagram: 04/19/17 0640 04/18/17 0700 Imaging Last Impressions Chest X-Ray 04/17/17 0000 Signed Impressions: Service Date/Time: Monday, April 17, 2017 20:45 - CONCLUSION: No acute disease. No significant change has occurred. Obi Interiano MD Objective Remarks GENERAL: This is a female, in the bed, appears n nad. HEAD: Atraumatic. Normocephalic. No temporal or scalp tenderness. EYES: Pupils equal round and reactive. Extraocular motions intact. CARDIOVASCULAR: Regular rate and rhythm without murmurs RESPIRATORY: Clear to auscultation. Breath sounds equal bilaterally. No wheezes GASTROINTESTINAL: Abdomen soft, non-tender, nondistended. No palpable masses. No guarding. MUSCULOSKELETAL: moves all extremities. NEUROLOGICAL: Awake and alert. Normal speech. A/P Assessment and Plan Suicidal ideation: under Backer Act. Management per psychiatry. Leukocytosis: WBC on admission was 26.9, trending down. 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 Pt is afebrile, chest x-ray neg, u/a neg. No other sources of infection other than possible bronchitis which she is currently on azithromycin. Peripheral smear reviewed and normal. At this time, will continue to monitor, check CBC in AM. Mild hypokalemia: replaced. Asthma: stable. add duonebs prn. albuterol inh prn HTN: BPs in the 150-160"s on admission. Per pt she is not on any meds at home. BP better controlled, continue to monitor and adjust meds as need. Continue amlodipine 5mg po daily, vasotec prn Hypercholesterolemia: TG 267, LDL 137, and HDL 49. Will place pt on low fat/ heart healthy diet ? heart problem: per pt she was told at [facility] that she needed to see a design specialist, but she doesn't know why. EKG normal. Per [place] records there is no mention of a cardiac diagnosis. Monitor as pt currently asymptomatic. Thank you for allowing me to take part of Mrs Garsia's care, we will continue to follow. Discussed Condition With patient, nurse Lucía Simpson MD Apr 20, 2017 08:02
[2017-04-20] MEDS: REMOVE OLD PATCH-NICOTINE T-DERMAL SCH (09:00)
[2017-04-20] MEDS: SERTRALINE HCL 50 MG TAB PO SCH (09:47)
[2017-04-20] MEDS: amLODIPine BESYLATE 5 MG TAB PO SCH (09:47)
[2017-04-20] MEDS: AZITHROMYCIN 250 MG TAB PO SCH (09:47)
[2017-04-20 10:32] LABS: AUTOMATED NEUTROPHIL # 10.7 TH/MM3 (1.8-7.7); BASOPHIL # 0.1 TH/MM3 (0-0.2); BASOPHIL % 0.8 % (0.0-2.0); EOSINOPHIL # 0.4 TH/MM3 (0-0.4); EOSINOPHIL % 2.2 % (0.0-4.0); HEMATOCRIT 41.8 % (35.0-46.0); HEMOGLOBIN 14.9 GM/DL (11.6-15.3); LYMPH % 26.9 % (9.0-44.0); LYMPHOCYTE # 4.5 TH/MM3 (1.0-4.8); MEAN CELL VOLUME 84.9 FL (80.0-100.0); MEAN CORPUSCULAR HEMOGLOBIN 30.2 PG (27.0-34.0); MEAN CORPUSCULAR HGB CONC 35.5 % (32.0-36.0); MEAN PLATELET VOLUME 7.6 FL (7.0-11.0); NEUT % 64.1 % (16.0-70.0); PLATELET COUNT 317 TH/MM3 (150-450); RED BLOOD COUNT 4.93 MIL/MM3 (4.00-5.30); RED CELL DISTRIBUTION WIDTH 13.5 % (11.6-17.2); WHITE BLOOD COUNT 16.8 TH/MM3 (4.0-11.0)
[2017-04-20 18:44] VITALS: BP 132/88; PULSE 72; RESP 18; TEMP 97.5; O2SAT 97
[2017-04-20] MEDS: traZODone HCL 50 MG TAB PO SCH (20:18)
[2017-04-21 06:19] VITALS: BP 130/80; PULSE 85; RESP 16; TEMP 97.7; O2SAT 96
--- NOTE | 2017-04-21 07:38 | HHI.PR ---
Subjective Remarks Headache improved. Says she is coughing some yellow sputum. Will check sputum cultures. Continue azithtomycin. No fever or chill overnight. Fels nauseated last night. Able to eat breakfast today. No n/v/d/c. Objective Vitals Vital Signs Date Time Temp Pulse Resp B/P (MAP) Pulse Ox O2 Delivery O2 Flow Rate FiO2 04/21/17 06:19 97.7 85 16 130/80 (97) 96 04/20/17 18:44 97.5 72 18 132/88 (103) 97 I/O 04/20/17 04/20/17 04/20/17 04/21/17 04/21/17 04/21/17 07:00 15:00 23:00 07:00 15:00 23:00 Intake Total 480 ml Balance 480 ml Intake Oral 480 ml Result Diagram: 04/20/17 1011 04/18/17 0700 Imaging Last Impressions Chest X-Ray 04/17/17 0000 Signed Impressions: Service Date/Time: Monday, April 17, 2017 20:45 - CONCLUSION: No acute disease. No significant change has occurred. Obi Interiano MD Objective Remarks GENERAL: This is a female, in the bed, appears n nad. HEAD: Atraumatic. Normocephalic. No temporal or scalp tenderness. EYES: Pupils equal round and reactive. Extraocular motions intact. CARDIOVASCULAR: Regular rate and rhythm without murmurs RESPIRATORY: Clear to auscultation. Breath sounds equal bilaterally. No wheezes GASTROINTESTINAL: Abdomen soft, non-tender, nondistended. No palpable masses. No guarding. MUSCULOSKELETAL: moves all extremities. NEUROLOGICAL: Awake and alert. Normal speech. A/P Assessment and Plan Suicidal ideation: under [employer]er Act. Management per psychiatry. Leukocytosis: WBC on admission was 26.9, trending down. 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 Pt is afebrile, chest x-ray neg, u/a neg. Check sputum cultures. No other sources of infection other than possible bronchitis which she is currently on azithromycin. Peripheral smear reviewed and normal. At this time, will continue to monitor, check CBC in AM. Mild hypokalemia: replaced. Asthma: stable. add duonebs prn. albuterol inh prn HTN: BPs in the 150-160"s on admission. Per pt she is not on any meds at home. BP better controlled, continue to monitor and adjust meds as need. Continue amlodipine 5mg po daily, vasotec prn Hypercholesterolemia: TG 267, LDL 137, and HDL 49. Will place pt on low fat/ heart healthy diet Nausea: Antiemetics as need. ? heart problem: per pt she was told at [facility] that she needed to see a research compliance specialist, but she doesn't know why. EKG normal. Per [place] records there is no mention of a cardiac diagnosis. Monitor as pt currently asymptomatic. Thank you for allowing me to take part of Mrs Garsia's care, we will continue to follow. Discussed Condition With patient, nurse Lucía Simpson MD Apr 21, 2017 07:38
--- NOTE | 2017-04-21 07:54 | HHI.PYPN ---
Subjective Remarks Patient seen in her room with floor staff, chart reviewed, patient compliant medications. Patient slept well last night is no issues overnight. She still somewhat guarded needing encouragement for medication compliance. Now continue treatment Review of Systems Except as stated in HPI: all other systems reviewed are Neg Mental Status Examination Appearance: Appropriate Consciousness: Alert Orientation: x4 Motor Activity: Normal gait Speech: Unremarkable Language: Adequate Fund of Knowledge: Adequate Attention and Concentration: Adequate Memory: Unremarkable Mood: Sad Affect: Sad Thought Process & Associations: Intact Thought Content: Appropriate Hallucination Type: None Delusion Type: None Suicidal Ideation: No Suicidal Plan: No Suicidal Intention: No Homicidal Ideation: No Homicidal Plan: No Homicidal Intention: No Insight: Poor Judgment: Poor Results Labs Test 04/20/17 10:11 White Blood Count 16.8 TH/MM3 Red Blood Count 4.93 MIL/MM3 Hemoglobin 14.9 GM/DL Hematocrit 41.8 % Mean Corpuscular Volume 84.9 FL Mean Corpuscular Hemoglobin 30.2 PG Mean Corpuscular Hemoglobin Concent 35.5 % Red Cell Distribution Width 13.5 % Platelet Count 317 TH/MM3 Mean Platelet Volume 7.6 FL Neutrophils (%) (Auto) 64.1 % Lymphocytes (%) (Auto) 26.9 % Monocytes (%) (Auto) 6.0 % Eosinophils (%) (Auto) 2.2 % Basophils (%) (Auto) 0.8 % Neutrophils # (Auto) 10.7 TH/MM3 Lymphocytes # (Auto) 4.5 TH/MM3 Monocytes # (Auto) 1.0 TH/MM3 Eosinophils # (Auto) 0.4 TH/MM3 Basophils # (Auto) 0.1 TH/MM3 CBC Comment DIFF FINAL Differential Comment Vitals/IOs Vital Signs Date Time Temp Pulse Resp B/P (MAP) Pulse Ox O2 Delivery O2 Flow Rate FiO2 04/21/17 06:19 97.7 85 16 130/80 (97) 96 04/17/17 23:48 Room Air Assessment & Plan Problem List: (1) Adjustment disorder with depressed mood ICD Codes: F43.21 - Adjustment disorder with depressed mood Assessment & Plan Estimated LOS: days patient still somewhat guarded and irritable though she had a good night slept well with no behavior problems. Compliant medications for now continue treatment Justification for Cont. Inpt. At this time patient will decompensate if placed in a lower level of care Discharge Planning To Be determined Vu Nguyễn MD Apr 21, 2017 07:54
[2017-04-21 08:46] LABS: BASOPHIL # 0.1 TH/MM3 (0-0.2); BASOPHIL % 0.5 % (0.0-2.0); EOSINOPHIL # 0.4 TH/MM3 (0-0.4); EOSINOPHIL % 2.8 % (0.0-4.0); HEMATOCRIT 46.2 % (35.0-46.0); HEMOGLOBIN 15.4 GM/DL (11.6-15.3); LYMPHOCYTE # 5.5 TH/MM3 (1.0-4.8); MEAN CELL VOLUME 86.2 FL (80.0-100.0); MEAN CORPUSCULAR HEMOGLOBIN 28.8 PG (27.0-34.0); MEAN CORPUSCULAR HGB CONC 33.5 % (32.0-36.0); MEAN PLATELET VOLUME 7.8 FL (7.0-11.0); MONO % 6.5 % (0.0-8.0); NEUT % 53.2 % (16.0-70.0); PLATELET COUNT 352 TH/MM3 (150-450); RED BLOOD COUNT 5.35 MIL/MM3 (4.00-5.30)
[2017-04-21] MEDS: REMOVE OLD PATCH-NICOTINE T-DERMAL SCH (09:00)
[2017-04-21 09:24] LABS: LYMPHOCYTES 36 % (9-44); MONOCYTES 8 % (0-8); POLYS (SEG NEUTROPHILS) 53 % (16-70)
[2017-04-21] MEDS: amLODIPine BESYLATE 5 MG TAB PO SCH (09:49)
[2017-04-21] MEDS: SERTRALINE HCL 50 MG TAB PO SCH (09:49)
[2017-04-21] MEDS: AZITHROMYCIN 250 MG TAB PO SCH (09:49)
[2017-04-21 16:10] VITALS: BP 147/85; PULSE 73; RESP 16; TEMP 98.1; O2SAT 98
[2017-04-21] MEDS: traZODone HCL 50 MG TAB PO SCH (21:43)
[2017-04-22 06:00] VITALS: BP 136/73; PULSE 60; RESP 16; TEMP 97.6; O2SAT 95
[2017-04-22] MEDS: REMOVE OLD PATCH-NICOTINE T-DERMAL SCH (09:00)
--- NOTE | 2017-04-22 09:57 | HHI.PR ---
Subjective Remarks 04-21 Headache improved. Says she is coughing some yellow sputum. Will check sputum cultures. Continue azithromycin. No fever or chill overnight. Fels nauseated last night. Able to eat breakfast today. No n/v/d/c. 04-22 CONCERNED ABOUT WHITE BLOOD CELL COUNT SLOWLY TRENDING DOWN DW RN AND PT AND PSYCHIATRY Objective Vitals Vital Signs Date Time Temp Pulse Resp B/P (MAP) Pulse Ox O2 Delivery O2 Flow Rate FiO2 04/22/17 06:00 97.6 60 16 136/73 (94) 95 04/21/17 16:10 98.1 73 16 147/85 (105) 98 I/O 04/21/17 04/21/17 04/21/17 04/22/17 04/22/17 04/22/17 07:00 15:00 23:00 07:00 15:00 23:00 Intake Total 480 ml 1200 ml Balance 480 ml 1200 ml Intake Oral 480 ml 1200 ml # Voids 2 1 Result Diagram: 04/21/17 0817 04/18/17 0700 Other Results Laboratory Tests Test 04/20/17 10:11 04/21/17 08:17 White Blood Count 16.8 TH/MM3 15.0 TH/MM3 Red Blood Count 4.93 MIL/MM3 5.35 MIL/MM3 Hemoglobin 14.9 GM/DL 15.4 GM/DL Hematocrit 41.8 % 46.2 % Mean Corpuscular Volume 84.9 FL 86.2 FL Mean Corpuscular Hemoglobin 30.2 PG 28.8 PG Mean Corpuscular Hemoglobin Concent 35.5 % 33.5 % Red Cell Distribution Width 13.5 % 14.0 % Platelet Count 317 TH/MM3 352 TH/MM3 Mean Platelet Volume 7.6 FL 7.8 FL Neutrophils (%) (Auto) 64.1 % 53.2 % Lymphocytes (%) (Auto) 26.9 % 37.0 % Monocytes (%) (Auto) 6.0 % 6.5 % Eosinophils (%) (Auto) 2.2 % 2.8 % Basophils (%) (Auto) 0.8 % 0.5 % Neutrophils # (Auto) 10.7 TH/MM3 8.0 TH/MM3 Lymphocytes # (Auto) 4.5 TH/MM3 5.5 TH/MM3 Monocytes # (Auto) 1.0 TH/MM3 1.0 TH/MM3 Eosinophils # (Auto) 0.4 TH/MM3 0.4 TH/MM3 Basophils # (Auto) 0.1 TH/MM3 0.1 TH/MM3 CBC Comment DIFF FINAL AUTO DIFF Differential Comment FINAL DIFF MANUAL Differential Total Cells Counted 100 Neutrophils % (Manual) 53 % Lymphocytes % 36 % Monocytes % 8 % Eosinophils % 3 % Neutrophils # (Manual) 8.0 TH/MM3 Platelet Estimate NORMAL Platelet Morphology Comment NORMAL Red Cell Morphology Comment NORMAL Imaging Last Impressions Chest X-Ray 04/17/17 0000 Signed Impressions: Service Date/Time: Monday, April 17, 2017 20:45 - CONCLUSION: No acute disease. No significant change has occurred. Obi Interiano MD Objective Remarks GENERAL: Awake alert talkative and cooperative appears to be in no distress SKIN: Warm and dry. HEAD: Atraumatic. Normocephalic. EYES: Pupils equal and round. No scleral icterus. No injection or drainage. Extraocular muscles intact ENT: No nasal bleeding or discharge. Mucous membranes pink and moist. Tongue is midline NECK: Trachea midline. No JVD. Supple CARDIOVASCULAR: Regular rate and rhythm. S1 and S2 no S3 or S4 RESPIRATORY: No accessory muscle use. Clear to auscultation. Breath sounds equal bilaterally. GASTROINTESTINAL: Abdomen soft, non-tender, nondistended. Hepatic and splenic margins not palpable. MUSCULOSKELETAL: Extremities without clubbing, cyanosis, or edema. No obvious deformities. NEUROLOGICAL: Awake and alert. No obvious cranial nerve deficits. Motor grossly within normal limits. 4 out of 5 muscle strength in the arms and legs. Normal speech. PSYCHIATRIC: INAppropriate mood and affect; insight and judgment ABnormal. Medications and IVs Current Medications Azithromycin (Zithromax) 250 mg DAILY PO Last administered on 04/21/17at 09:49; Start 04/18/17 at 09:00; Stop 04/23/17 at 08:59 Lorazepam (Ativan) 0.5 mg Q6H PRN PO MODERATE TO SEVERE ANXIETY Last administered on 04/18/17at 10:37; Start 04/18/17 at 01:30 Lorazepam (Ativan Inj) 0.5 mg Q6H PRN IM MODERATE TO SEVERE ANXIETY; Start at 01:30 Diphenhydramine HCl (Benadryl) 50 mg HS PRN PO INSOMNIA; Start 04/18/17 at 01: 30 Acetaminophen (Tylenol) 650 mg Q4H PRN PO Pain 1-5 or Temp >101F Last administered on 04/18/17at 10:42; Start 04/18/17 at 01:30 Magnesium Hydroxide (Milk Of Magnesia Liq) 30 ml DAILY PRN PO CONSTIPATION; Start 04/18/17 at 01:30 Al Hydrox/Mg Hydrox/Simethicone (Mag-Al Plus Susp Liq) 30 ml Q6H PRN PO DYSPEPSIA; Start 04/18/17 at 01:30 Nicotine (Habitrol 21 Mg Patch.24 Hr) 1 patch DAILY PRN T-DERMAL NICOTINE CRAVING; Start 04/18/17 at 01:30 Benztropine Mesylate (Cogentin) 1 mg Q12H PRN PO EXTRA PYRAMIDAL SYMPTOMS; Start 04/18/17 at 01:30 Benztropine Mesylate (Cogentin Inj) 1 mg Q12H PRN IM EXTRA PYRAMIDAL SYMPTOMS; Start 04/18/17 at 01:30 Miscellaneous Information 1 DAILY T-DERMAL ; Start 04/18/17 at 09:00 Amlodipine Besylate (Norvasc) 5 mg DAILY PO Last administered on 04/21/17at 09: 49; Start 04/18/17 at 09:00 Enalaprilat (Vasotec Inj) 1.25 mg Q6H PRN IV PUSH SBP>160, DBP>90; Start at 09:00 Albuterol/ Ipratropium (Duoneb Neb) 1 ampule Q6HR NEB PRN NEB SOB/WHEEZING; Start 04/18/17 at 09:00 Albuterol Sulfate (Proair Hfa Inh) 2 puff Q6H PRN INH WHEEZING; Start 04/18/17 at 09:00 Sertraline HCl (Zoloft) 50 mg DAILY PO Last administered on 04/21/17at 09:49; Start 04/18/17 at 09:00 Potassium Chloride (KCl) 40 meq ONCE ONCE PO Last administered on 04/18/17at 10 :38; Start 04/18/17 at 09:00; Stop 04/18/17 at 09:36; Status DC Trazodone HCl (Desyrel) 50 mg HS PO Last administered on 04/21/17at 21:43; Start 04/19/17 at 21:00 A/P Assessment and Plan Assessment and Plan Suicidal ideation: under [employer] Act. Management per psychiatry. Leukocytosis: WBC on admission was 26.9, trending down. 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 Pt is afebrile, chest x-ray neg, u/a neg. Check sputum cultures. No other sources of infection other than possible bronchitis which she is currently on azithromycin. Peripheral smear reviewed and normal. At this time, will continue to monitor, check CBC in AM. Mild hypokalemia: replaced. RECHECK AM LABS Asthma: stable. add duonebs prn. albuterol inh prn HTN: BPs in the 150-160"s on admission. Per pt she is not on any meds at home. BP better controlled, continue to monitor and adjust meds as need. Continue amlodipine 5mg po daily, vasotec prn Hypercholesterolemia: TG 267, LDL 137, and HDL 49. Will place pt on low fat/ heart healthy diet Nausea: Antiemetics as need. ? heart problem: per pt she was told at [facility] that she needed to see a building specialist, but she doesn't know why. EKG normal. Per [place] records there is no mention of a cardiac diagnosis. Monitor as pt currently asymptomatic. CONTINUE CURRENT TREATMENTS CHECK AM LABS Discharge Planning PENDING PSYCHIATRIC CLEARANCE Alexander Whaley DO Apr 22, 2017 09:57
[2017-04-22] MEDS: AZITHROMYCIN 250 MG TAB PO SCH (10:52)
[2017-04-22] MEDS: amLODIPine BESYLATE 5 MG TAB PO SCH (10:52)
[2017-04-22] MEDS: SERTRALINE HCL 50 MG TAB PO SCH (10:52)
[2017-04-22] MEDS ORDERED: POTASSIUM CHLORIDE 20 MEQ CONTROLLED RELEASE TAB PO ONE (11:00)
[2017-04-22] MEDS ORDERED: AMLO5 PO (12:06)
[2017-04-22] MEDS ORDERED: AZIT250T3 PO (12:06)
[2017-04-22] MEDS ORDERED: ZOLO50TA PO (12:06)
[2017-04-22] MEDS ORDERED: TRAZ50TA12 PO (12:06)
[2017-04-22 13:45] LABS: AUTOMATED NEUTROPHIL # 9.4 TH/MM3 (1.8-7.7); BASOPHIL # 0.1 TH/MM3 (0-0.2); BASOPHIL % 0.4 % (0.0-2.0); EOSINOPHIL # 0.2 TH/MM3 (0-0.4); EOSINOPHIL % 1.5 % (0.0-4.0); HEMATOCRIT 45.4 % (35.0-46.0); HEMOGLOBIN 15.2 GM/DL (11.6-15.3); LYMPH % 31.6 % (9.0-44.0); LYMPHOCYTE # 4.8 TH/MM3 (1.0-4.8); MEAN CELL VOLUME 86.8 FL (80.0-100.0); MEAN CORPUSCULAR HEMOGLOBIN 29.1 PG (27.0-34.0); MEAN CORPUSCULAR HGB CONC 33.5 % (32.0-36.0); MONO % 5.1 % (0.0-8.0); MONOCYTE # 0.8 TH/MM3 (0-0.9); NEUT % 61.4 % (16.0-70.0); PLATELET COUNT 352 TH/MM3 (150-450); RED BLOOD COUNT 5.23 MIL/MM3 (4.00-5.30); RED CELL DISTRIBUTION WIDTH 13.7 % (11.6-17.2); WHITE BLOOD COUNT 15.3 TH/MM3 (4.0-11.0)
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
== END 2017-04-22 13:33 | disposition home or self-care (01) | DRG 881 ==
LOC: NEPJ 17:12 → NEDA 04-18 01:17 → H4EA 04-18 03:00
PROVIDERS: ADMIT Student in an Organized Health Care Education/Training Program; ATTEND Student in an Organized Health Care Education/Training Program
DX: F43.21 Adjustment disorder with depressed mood (principal); R45.851 Suicidal ideations; E11.9 Type 2 diabetes mellitus without complications; I10 Essential (primary) hypertension; D72.829 Elevated white blood cell count, unspecified; E87.6 Hypokalemia; E78.00 Pure hypercholesterolemia, unspecified; R51 Headache; G47.9 Sleep disorder, unspecified; J40 Bronchitis, not specified as acute or chronic; R11.0 Nausea; F17.210 Nicotine dependence, cigarettes, uncomplicated; Z81.8 Family history of other mental and behavioral disorders; Z88.5 Allergy status to narcotic agent
CPT/HCPCS: 71045; 80048; 80053; 80061; 80307; 81001; 83036; 84443; 84703; 85007; 85025; 85027; 85060; 93005; 94150

== ENCOUNTER 2017-04-24 12:01 | Emergency (ER) | payer MEDICAID, OTHER ==
[~2017-04-24 12:01] MED LIST changes: +AMLO5 PO; +TRAZ50TA12 PO; -ZOFR4TAB3 SL; +ZOLO50TA PO
[2017-04-24 12:12] VITALS: BP 170/98; PULSE 101; RESP 16; TEMP 98.4; O2SAT 96
[2017-04-24 12:42] LABS: AUTOMATED NEUTROPHIL # 10.3 TH/MM3 (1.8-7.7); BASOPHIL # 0.1 TH/MM3 (0-0.2); BASOPHIL % 0.6 % (0.0-2.0); EOSINOPHIL # 0.2 TH/MM3 (0-0.4); EOSINOPHIL % 1.3 % (0.0-4.0); HEMATOCRIT 45.6 % (35.0-46.0); LYMPH % 32.5 % (9.0-44.0); LYMPHOCYTE # 5.7 TH/MM3 (1.0-4.8); MEAN CELL VOLUME 86.6 FL (80.0-100.0); MEAN CORPUSCULAR HEMOGLOBIN 28.6 PG (27.0-34.0); MEAN PLATELET VOLUME 8.1 FL (7.0-11.0); MONO % 7.3 % (0.0-8.0); MONOCYTE # 1.3 TH/MM3 (0-0.9); NEUT % 58.3 % (16.0-70.0); PLATELET COUNT 351 TH/MM3 (150-450); RED BLOOD COUNT 5.27 MIL/MM3 (4.00-5.30); RED CELL DISTRIBUTION WIDTH 13.4 % (11.6-17.2); WHITE BLOOD COUNT 17.6 TH/MM3 (4.0-11.0)
[2017-04-24 12:58] LABS: ALBUMIN 3.7 GM/DL (3.4-5.0); AST (GOT) 21 U/L (15-37); BLOOD UREA NITROGEN 11 MG/DL (7-18); CALCIUM 9.2 MG/DL (8.5-10.1); CHLORIDE 104 MEQ/L (98-107); GLOMERULAR FILTRATION RATE 95 ML/MIN (>89); GLUCOSE,RANDOM 109 MG/DL (74-106); SODIUM (NA) 139 MEQ/L (136-145)
[2017-04-24 13:02] LABS: INTERNATIONAL NORMALIZED RATIO 0.9 RATIO; PROTHROMBIN TIME - PATIENT 9.6 SEC (9.8-11.6)
[2017-04-24 13:03] LABS: ALKALINE PHOSPHATASE 87 U/L (45-117); ALT (GPT) 32 U/L (10-53); TOTAL BILIRUBIN ADULT 0.3 MG/DL (0.2-1.0); TOTAL PROTEIN 7.6 GM/DL (6.4-8.2); TROPONIN I LESS THAN 0.02 NG/ML (0.02-0.05)
--- NOTE | 2017-04-24 13:04 | RADRPT ---
EXAM DATE/TIME: 04/24/2017 12:46 [facility] COMPARISON: No previous studies available for comparison. INDICATIONS : Chest pains with pressure, shortness of breath. MEDICAL HISTORY : Tachycardia SURGICAL HISTORY : None. ENCOUNTER: Initial ACUITY: 3 days PAIN SCORE: 9/10 LOCATION: Bilateral chest FINDINGS: PA and lateral views of the chest demonstrate the lungs to be symmetrically aerated without evidence of mass, infiltrate or effusion. The cardiomediastinal contours are unremarkable. Osseous structure s are intact. CONCLUSION: No acute disease. Marcos Person MD on April 24, 2017 at 13:01 Board Certified Radiologist. This report was verified electronically.
[2017-04-24 13:29] LABS: BANDS 3 % (0-6); LYMPHOCYTES 43 % (9-44); MONOCYTES 4 % (0-8); POLYS (SEG NEUTROPHILS) 48 % (16-70)
--- NOTE | 2017-04-24 14:38 | PD ---
HPI Chief Complaint: Chest Pain Time Seen by Provider: 13:55 Travel History International Travel<30 days: No Contact w/Intl Traveler<30days: No Traveled to known affect area: No History of Present Illness HPI 36-year-old female presents to the emergency department via EMS with complaining of feeling lightheaded, dizzy, nauseated and with racing heartbeat this morning. Reports a "little bit" of chest pain and shortness of breath. Chest pain is worse with movement while she was in bed. Denies worsening of chest pain with activity, such as walking. He describes the pain as some he was pushing on her chest, sharp, dull. Radiation of pain to the left jaw. Denies fever, vomiting. Took aspirin this morning. Reports history of "racing heart." Says she was told she has a heart condition, but was not told what it was. Was told to follow up with farmworker machine and has not. Denies history of stress test. No known aggravating or relieving factors. Has not tried any other treatments or medications to alleviate her symptoms. Rates pain 3. Positive family history of RI. States her mom had a heart attack at age of 36. Denies primary care provider. Allergies to tramadol and Simcor. History of hypercholesterolemia, hypertension, type 2 diabetes, asthma. Has no other medical complaints. No other modifying factors or associated signs and symptoms. PFSH Past Medical History Asthma: Yes Cancer: No Cardiovascular Problems: Yes (recent Heart condition per pt upon D/C from [facility]) High Cholesterol: Yes Diabetes: Yes Patient Takes Glucophage: Yes Diminished Hearing: No Genitourinary: No Hypertension: Yes Immune Disorder: No Musculoskeletal: No Neurologic: No Reproductive: No Respiratory: Yes (ASTHMA) Immunizations Current: Yes ?: Not LMP: 04/19/17 : 6 Para: 3 Miscarriage: 2 : 1 Dilation and Curettage (D&C): Yes (X2) Tubal Ligation: Yes Past Surgical History Abdominal Surgery: Yes (HERNIA, CHOLEY) Cholecystectomy: Yes Oral Surgery: Yes Other Surgery: Yes Social History Alcohol Use: Yes (OCC) Tobacco Use: Yes (1/2) Substance Use: No Allergies-Medications (Allergen,Severity, Reaction): Coded Allergies: budesonide (Unverified Allergy, Unknown, HIVES, 11/06/16) formoterol (Unverified Allergy, Unknown, HIVES, 11/06/16) tramadol (Unverified Adverse Reaction, Mild, N/V, 11/06/16) Reported Meds & Prescriptions Reported Meds & Active Scripts Active Trazodone (Trazodone HCl) 50 Mg Tab 50 Mg PO HS 30 Days Zoloft (Sertraline HCl) 50 Mg Tab 50 Mg PO DAILY 30 Days Norvasc (Amlodipine Besylate) 5 Mg Tab 5 Mg PO DAILY 30 Days Review of Systems Except as stated in HPI: all other systems reviewed are Neg Physical Exam Narrative GENERAL: Well-nourished, well-developed female patient, in no acute distress SKIN: Warm and dry. HEAD: Atraumatic. Normocephalic. EYES: Pupils equal and round. No scleral icterus. No injection or drainage. ENT: Mucosa pink and moist. NECK: Trachea midline. CHEST: Reproducible chest wall tenderness to sternal and left chest; no crepitance or deformity. No retractions or use of accessory muscles. CARDIOVASCULAR: Regular rate and rhythm. No murmur appreciated. RESPIRATORY: No accessory muscle use. Clear to auscultation. Breath sounds equal bilaterally. No retractions or tachypnea. GASTROINTESTINAL: Abdomen soft, non-tender, nondistended. Hepatic and splenic margins not palpable. Bowel sounds are active 4 quadrants. MUSCULOSKELETAL: No obvious deformities. No clubbing. No cyanosis. No edema. NEUROLOGICAL: Awake and alert. Oriented 3. No obvious cranial nerve deficits. Motor grossly within normal limits. Normal speech. Moves all extremities. 5/5 strength to all extremities. PSYCHIATRIC: Appropriate mood and affect; insight and judgment normal. Data Data Last Documented VS Vital Signs Date Time Temp Pulse Resp B/P (MAP) Pulse Ox O2 Delivery O2 Flow Rate FiO2 04/24/17 15:43 73 18 171/95 (120) 98 Room Air 04/24/17 12:12 98.4 Orders Orders Electrocardiogram (04/24/17 12:08) Ckmb (Isoenzyme) Profile (04/24/17 12:08) Complete Blood Count With Diff (04/24/17 12:08) Comprehensive Metabolic Panel (04/24/17 12:08) Magnesium (Mg) (04/24/17 12:08) Prothrombin Time / Inr (Pt) (1/31/18 12:08) Act Partial Throm Time (Ptt) (04/24/17 12:08) Troponin I (04/24/17 12:08) Chest, Pa & Lat (04/24/17 12:08) D-Dimer (04/24/17 14:38) Labs Laboratory Tests Test 04/24/17 12:15 White Blood Count 17.6 TH/MM3 Red Blood Count 5.27 MIL/MM3 Hemoglobin 15.0 GM/DL Hematocrit 45.6 % Mean Corpuscular Volume 86.6 FL Mean Corpuscular Hemoglobin 28.6 PG Mean Corpuscular Hemoglobin Concent 33.0 % Red Cell Distribution Width 13.4 % Platelet Count 351 TH/MM3 Mean Platelet Volume 8.1 FL Neutrophils (%) (Auto) 58.3 % Lymphocytes (%) (Auto) 32.5 % Monocytes (%) (Auto) 7.3 % Eosinophils (%) (Auto) 1.3 % Basophils (%) (Auto) 0.6 % Neutrophils # (Auto) 10.3 TH/MM3 Lymphocytes # (Auto) 5.7 TH/MM3 Monocytes # (Auto) 1.3 TH/MM3 Eosinophils # (Auto) 0.2 TH/MM3 Basophils # (Auto) 0.1 TH/MM3 CBC Comment AUTO DIFF Differential Total Cells Counted 100 Neutrophils % (Manual) 48 % Band Neutrophils % 3 % Lymphocytes % 43 % Monocytes % 4 % Eosinophils % 2 % Neutrophils # (Manual) 9.0 TH/MM3 Differential Comment FINAL DIFF MANUAL Platelet Estimate NORMAL Platelet Morphology Comment NORMAL Prothrombin Time 9.6 SEC Prothromb Time International Ratio 0.9 RATIO Activated Partial Thromboplast Time 24.5 SEC D-Dimer Quantitative (PE/DVT) 0.27 MG/L FEU Blood Urea Nitrogen 11 MG/DL Creatinine 0.70 MG/DL Random Glucose 109 MG/DL Total Protein 7.6 GM/DL Albumin 3.7 GM/DL Calcium Level 9.2 MG/DL Magnesium Level 2.0 MG/DL Alkaline Phosphatase 87 U/L Aspartate Amino Transf (AST/SGOT) 21 U/L Alanine Aminotransferase (ALT/SGPT) 32 U/L Total Bilirubin 0.3 MG/DL Sodium Level 139 MEQ/L Potassium Level 3.6 MEQ/L Chloride Level 104 MEQ/L Carbon Dioxide Level 27.0 MEQ/L Anion Gap 8 MEQ/L Estimat Glomerular Filtration Rate 95 ML/MIN Total Creatine Kinase 57 U/L Troponin I LESS THAN 0.02 NG/ML MDM Medical Decision Making Medical Screen Exam Complete: Yes Emergency Medical Condition: Yes Medical Record Reviewed: Yes Differential Diagnosis RI, ACS, anxiety, NSTEMI Narrative Course 36-year-old female with chest pain. Chest pain is reproducible on physical exam. Chest pain protocol ordered and initiated in triage. White blood cell count elevated at 17.6. Troponin less than 0.02. Otherwise CBC and CMP unremarkable. Coags unremarkable. I discussed the patient with Dr. Alvarado and he recommends d-dimer. D-dimer ordered. 1537: D-dimer 0.27. AMA: The risks of leaving against medical advice without further evaluation treatment were discussed with the patient. These risks include cardiac dysfunction, cardiac dysrhythmia, possible heart attack, possible stroke or . The patient indicated understanding of these risks and appeared to have the capacity to make this decision. Diagnosis Primary Impression: Left against medical advice Disposition: 07 AGAINST MEDICAL ADVICE Tatiana Sousa Apr 24, 2017 14:38
--- NOTE | 2017-04-24 15:10 | EKG ---
Date Performed: 04/24/2017 Time Performed: 12:16:05 PTAGE: 36 years EKG: Sinus rhythm WITH SINUS ARRHYTHMIA NONSPECIFIC T-WAVE ABNORMALITY BORDERLINE ECG No significant change from prior electrocardiogram. PREVIOUS TRACING : 04/18/2017 12.07 DOCTOR: Ankit Bernal Interpretating Date/Time 04/24/2017 15:10:36
[2017-04-24 15:43] VITALS: BP 171/95; PULSE 73; RESP 18; O2SAT 98
== END 2017-04-24 16:00 | disposition left against medical advice (07) ==
LOC: NEPD 12:01
DX: R07.9 Chest pain, unspecified (principal); I10 Essential (primary) hypertension; R94.31 Abnormal electrocardiogram [ECG] [EKG]; Z72.0 Tobacco use
CPT/HCPCS: 71046; 80053; 82550; 83735; 84484; 85007; 85027; 85379; 85610; 85730; 93005; 99285

== ENCOUNTER 2017-04-24 19:21 | Observation (INO) | payer MEDICAID ==
[2017-04-24 19:27] VITALS: BP 153/95; PULSE 85; RESP 20; TEMP 98.6; O2SAT 97
[2017-04-24] MEDS ORDERED: ASPIRIN 81 MG CHEW TAB PO ONE (20:15)
[2017-04-24] MEDS ORDERED: SODIUM CHLORIDE 0.9% FLUSH 10 ML FLUSH IVF PRN (20:15)
[2017-04-24] MEDS ORDERED: NITROGLYCERIN 2% OINT 1 GM PACKET TOP ONE (20:15)
[2017-04-24] MEDS ORDERED: SODIUM CHLORID 0.9% 500 ML INJ 500 ML IV ONE (20:15)
--- NOTE | 2017-04-24 20:20 | PD ---
HPI Chief Complaint: Cardiac Complaint Time Seen by Provider: 20:12 Travel History International Travel<30 days: No Contact w/Intl Traveler<30days: No Traveled to known affect area: No History of Present Illness HPI The patient is a 36-year-old female who presents to the emergency department for chest pain. The patient was recently minutes in the hospital for depression, was discharged, there was seen in the emergency department for chest pain earlier today. The patient was going to be admitted to the chest pain Center, however, signed out AGAINST MEDICAL ADVICE secondary to a court meeting tomorrow. However, the patient found out she did not have to go to court if she was seeking medical treatment. The patient complained of chest pain that was substernal earlier today, dull, occasionally sharp, occasionally worse with movement, however, president rest. She also complained of mild shortness of breath with nausea, denied any vomiting or diaphoresis. Patient does have a history of hypertension, hyperlipidemia, diabetes type 2 which is treated with diet, and tobacco use. She also states her mother had an myocardial infarction in her 30s. The patient denies any known history of CAD and denies any previous stress test. The patient states she was treated for possible blood clot during , however, had a test after which revealed she had no blood clot. She denies any significant swelling to lower extremities. She denies a fever, chills, sweats, or cough. PFSH Past Medical History Asthma: Yes Cancer: No Cardiovascular Problems: Yes (recent Heart condition per pt upon D/C from [facility]) High Cholesterol: Yes Diabetes: Yes Diminished Hearing: No Genitourinary: No Hypertension: Yes Immune Disorder: No Musculoskeletal: No Neurologic: No Reproductive: No Respiratory: Yes (ASTHMA) Immunizations Current: Yes : 6 Para: 3 Miscarriage: 2 : 1 Dilation and Curettage (D&C): Yes (X2) Tubal Ligation: Yes Past Surgical History Abdominal Surgery: Yes (HERNIA, CHOLEY) Cholecystectomy: Yes Oral Surgery: Yes Other Surgery: Yes Social History Alcohol Use: Yes (OCC) Tobacco Use: Yes (1/2) Substance Use: No Allergies-Medications (Allergen,Severity, Reaction): Coded Allergies: budesonide (Unverified Allergy, Unknown, HIVES, 11/06/16) formoterol (Unverified Allergy, Unknown, HIVES, 11/06/16) tramadol (Unverified Adverse Reaction, Mild, N/V, 11/06/16) Reported Meds & Prescriptions Reported Meds & Active Scripts Active Trazodone (Trazodone HCl) 50 Mg Tab 50 Mg PO HS 30 Days Zoloft (Sertraline HCl) 50 Mg Tab 50 Mg PO DAILY 30 Days Norvasc (Amlodipine Besylate) 5 Mg Tab 5 Mg PO DAILY 30 Days Review of Systems Except as stated in HPI: all other systems reviewed are Neg General / Constitutional: No: Fever Cardiovascular: Positive: Chest Pain or Discomfort, No: Diaphoresis, Dyspnea on exertion Respiratory: Positive: Shortness of Breath Gastrointestinal: Positive: Nausea, No: Vomiting, Abdominal Pain Musculoskeletal: No: Edema Neurologic: No: Dizziness Physical Exam Narrative GENERAL: Awake, alert, pleasant 36 year-old female who appears her stated age and is in no acute respiratory distress. SKIN: Focused skin assessment warm/dry. HEAD: Atraumatic. Normocephalic. EYES: Pupils equal and round. No scleral icterus. No injection or drainage. ENT: No nasal bleeding or discharge. Mucous membranes pink and moist. NECK: Trachea midline. No JVD. CARDIOVASCULAR: Regular rate and rhythm. No murmur appreciated. Palpation the chest wall produces pain, however, she states this is different than the pain she was experiencing earlier. RESPIRATORY: No accessory muscle use. Clear to auscultation. Breath sounds equal bilaterally. GASTROINTESTINAL: Abdomen soft, non-tender, nondistended. No rebound tenderness. MUSCULOSKELETAL: No obvious deformities. No clubbing. No cyanosis. No edema. Calves are soft bilaterally. NEUROLOGICAL: Awake and alert. No obvious cranial nerve deficits. Motor grossly within normal limits. Normal speech. PSYCHIATRIC: Appropriate mood and affect; insight and judgment normal. Data Data Last Documented VS Vital Signs Date Time Temp Pulse Resp B/P (MAP) Pulse Ox O2 Delivery O2 Flow Rate FiO2 04/24/17 20:41 14 98 Room Air 04/24/17 20:32 04/24/17 19:27 98.6 85 Orders Orders Electrocardiogram (04/24/17 ) Basic Metabolic Panel (Bmp) (04/24/17 20:13) Ckmb (Isoenzyme) Profile (04/24/17 20:13) Complete Blood Count With Diff (04/24/17 20:13) Magnesium (Mg) (04/24/17 20:13) Troponin I (04/24/17 20:13) Ecg Monitoring (04/24/17 20:13) Iv Access Insert/Monitor (04/24/17 20:13) Oximetry (04/24/17 20:13) Oxygen Administration (04/24/17 20:13) Aspirin Chew (Aspirin Chew) (04/24/17 20:15) Nitroglycerin 2% Oint (Nitroglycerin 2% (04/24/17 20:15) Sodium Chloride 0.9% Flush (Ns Flush) (04/24/17 20:15) Sodium Chlorid 0.9% 500 Ml Inj (Ns 500 M (04/24/17 20:15) Labs Laboratory Tests Test 04/24/17 20:30 White Blood Count 16.8 TH/MM3 Red Blood Count 4.85 MIL/MM3 Hemoglobin 14.7 GM/DL Hematocrit 41.2 % Mean Corpuscular Volume 84.9 FL Mean Corpuscular Hemoglobin 30.3 PG Mean Corpuscular Hemoglobin Concent 35.6 % Red Cell Distribution Width 13.8 % Platelet Count 308 TH/MM3 Mean Platelet Volume 8.4 FL Neutrophils (%) (Auto) 59.1 % Lymphocytes (%) (Auto) 30.6 % Monocytes (%) (Auto) 7.9 % Eosinophils (%) (Auto) 1.8 % Basophils (%) (Auto) 0.6 % Neutrophils # (Auto) 9.9 TH/MM3 Lymphocytes # (Auto) 5.1 TH/MM3 Monocytes # (Auto) 1.3 TH/MM3 Eosinophils # (Auto) 0.3 TH/MM3 Basophils # (Auto) 0.1 TH/MM3 CBC Comment DIFF FINAL Differential Comment Blood Urea Nitrogen 13 MG/DL Creatinine 0.82 MG/DL Random Glucose 102 MG/DL Calcium Level 9.0 MG/DL Magnesium Level 2.0 MG/DL Sodium Level 137 MEQ/L Potassium Level 3.6 MEQ/L Chloride Level 104 MEQ/L Carbon Dioxide Level 25.2 MEQ/L Anion Gap 8 MEQ/L Estimat Glomerular Filtration Rate 79 ML/MIN Total Creatine Kinase 59 U/L Troponin I LESS THAN 0.02 NG/ML MDM Medical Decision Making Medical Screen Exam Complete: Yes Emergency Medical Condition: Yes Medical Record Reviewed: Yes Interpretation(s) EKG reveals normal sinus rhythm with a rate 80. No ischemic changes or ectopy noted. Laboratory Tests Test 04/24/17 20:30 White Blood Count 16.8 TH/MM3 Red Blood Count 4.85 MIL/MM3 Hemoglobin 14.7 GM/DL Hematocrit 41.2 % Mean Corpuscular Volume 84.9 FL Mean Corpuscular Hemoglobin 30.3 PG Mean Corpuscular Hemoglobin Concent 35.6 % Red Cell Distribution Width 13.8 % Platelet Count 308 TH/MM3 Mean Platelet Volume 8.4 FL Neutrophils (%) (Auto) 59.1 % Lymphocytes (%) (Auto) 30.6 % Monocytes (%) (Auto) 7.9 % Eosinophils (%) (Auto) 1.8 % Basophils (%) (Auto) 0.6 % Neutrophils # (Auto) 9.9 TH/MM3 Lymphocytes # (Auto) 5.1 TH/MM3 Monocytes # (Auto) 1.3 TH/MM3 Eosinophils # (Auto) 0.3 TH/MM3 Basophils # (Auto) 0.1 TH/MM3 CBC Comment DIFF FINAL Differential Comment Blood Urea Nitrogen 13 MG/DL Creatinine 0.82 MG/DL Random Glucose 102 MG/DL Calcium Level 9.0 MG/DL Magnesium Level 2.0 MG/DL Sodium Level 137 MEQ/L Potassium Level 3.6 MEQ/L Chloride Level 104 MEQ/L Carbon Dioxide Level 25.2 MEQ/L Anion Gap 8 MEQ/L Estimat Glomerular Filtration Rate 79 ML/MIN Total Creatine Kinase 59 U/L Troponin I LESS THAN 0.02 NG/ML Differential Diagnosis Differential diagnosis includes acute coronary syndrome, GERD, social spasm, pulmonary embolism, somatization, anxiety. Narrative Course IV was established, labs are drawn and sent, and the patient was placed on cardiac telemetry monitoring and continuous pulse oximetry monitoring. EKG was ordered and interpreted. I reviewed the patient's EMR from earlier today, she had a d-dimer that was negative at 0.27, therefore, no indication for CT pulmonary angiogram. Patient's initial troponin was negative this morning. X- ray performed earlier today was also unremarkable. The patient was administered aspirin and placed on Nitropaste. Patient does have multiple risk factors including significant family medical history, hypertension, hyperlipidemia, borderline diabetes. Therefore, patient will be 23 hour observation to the chest pain Center and may benefit from a stress test morning. Physician Communication Physician Communication The patient will be 23 hour observation to the chest pain center for serial cardiac enzymes and further evaluation by cardiology for possible stress test. Diagnosis Primary Impression: Chest pain Qualified Codes: R07.9 - Chest pain, unspecified Admitting Information Admitting Physician Requests: Observation Condition: Stable Tom Garrison MD Apr 24, 2017 20:20
[2017-04-24 20:32] VITALS: RESP 16; O2SAT 98
[2017-04-24 20:56] LABS: AUTOMATED NEUTROPHIL # 9.9 TH/MM3 (1.8-7.7); BASOPHIL # 0.1 TH/MM3 (0-0.2); BASOPHIL % 0.6 % (0.0-2.0); EOSINOPHIL # 0.3 TH/MM3 (0-0.4); EOSINOPHIL % 1.8 % (0.0-4.0); HEMATOCRIT 41.2 % (35.0-46.0); HEMOGLOBIN 14.7 GM/DL (11.6-15.3); LYMPH % 30.6 % (9.0-44.0); LYMPHOCYTE # 5.1 TH/MM3 (1.0-4.8); MEAN CELL VOLUME 84.9 FL (80.0-100.0); MEAN CORPUSCULAR HEMOGLOBIN 30.3 PG (27.0-34.0); MEAN CORPUSCULAR HGB CONC 35.6 % (32.0-36.0); MEAN PLATELET VOLUME 8.4 FL (7.0-11.0); MONO % 7.9 % (0.0-8.0); MONOCYTE # 1.3 TH/MM3 (0-0.9); NEUT % 59.1 % (16.0-70.0); PLATELET COUNT 308 TH/MM3 (150-450); RED BLOOD COUNT 4.85 MIL/MM3 (4.00-5.30); RED CELL DISTRIBUTION WIDTH 13.8 % (11.6-17.2); WHITE BLOOD COUNT 16.8 TH/MM3 (4.0-11.0)
[2017-04-24 21:07] LABS: BICARBONATE 25.2 MEQ/L (21.0-32.0); BLOOD UREA NITROGEN 13 MG/DL (7-18); CHLORIDE 104 MEQ/L (98-107); CREATININE 0.82 MG/DL (0.50-1.00); GLOMERULAR FILTRATION RATE 79 ML/MIN (>89); GLUCOSE,RANDOM 102 MG/DL (74-106); SODIUM (NA) 137 MEQ/L (136-145)
--- NOTE | 2017-04-24 21:10 | EKG ---
Date Performed: 04/24/2017 Time Performed: 19:37:09 PTAGE: 36 years EKG: Sinus rhythm NORMAL ECG No significant change from prior electrocardiogram. PREVIOUS TRACING : 04/24/2017 12.16 DOCTOR: Ankit Bernal Interpretating Date/Time 04/24/2017 21:10:22
[2017-04-24 21:12] LABS: TROPONIN I LESS THAN 0.02 NG/ML (0.02-0.05)
[2017-04-24] MEDS ORDERED: SODIUM CHLORIDE 0.9% FLUSH 10 ML FLUSH IV FLUSH PRN (21:30)
[2017-04-24] MEDS ORDERED: ACETAMINOPHEN 500 MG CPLT PO PRN (21:30)
[2017-04-24] MEDS ORDERED: MORPHINE SULFATE 2 MG/ML INJ IV PUSH PRN (21:30)
[2017-04-24] MEDS ORDERED: ACETAMINOPHEN/HYDROcodone 325 MG/7.5 MG TAB PO PRN (21:30)
[2017-04-24 21:55] VITALS: BP 145/77; PULSE 92; RESP 16; O2SAT 97
[2017-04-24] MEDS ORDERED: ONDANSETRON HCL 4 MG/2 ML VIAL IV PUSH PRN (22:00)
[2017-04-24 23:59] VITALS: BP 113/63; PULSE 75; RESP 18; TEMP 98.1; O2SAT 96
[2017-04-25 00:02] VITALS: PULSE 79
[2017-04-25 00:23] LABS: TROPONIN I LESS THAN 0.02 NG/ML (0.02-0.05)
[2017-04-25 03:05] VITALS: BP 118/72; PULSE 66; RESP 18; TEMP 98.8; O2SAT 97
[2017-04-25 03:17] VITALS: PULSE 60
[2017-04-25 03:38] LABS: TROPONIN I LESS THAN 0.02 NG/ML (0.02-0.05)
[2017-04-25 08:00] VITALS: PULSE 60
--- NOTE | 2017-04-25 08:45 | HHI.HP ---
HPI Primary Care Physician No Primary Care Physician Chief Complaint Chest pain History of Present Illness 36 year old female with history of depression presents to ER for further evaluation of chest pain. Reporting new onset of depression January 2017 and since then experiences intermittent chest "pounding," lightheadedness, and nausea. Reporting increasing episodes for the past week accompanied chest substernal chest pain. Characterized as "someone pushing on my chest." Duration constant since yesterday a.m. Radiation of left jaw, left ear described as "soreness." No associated symptoms of dyspnea, vomiting, or diaphoresis. No known precipitating or relieving factors. Hurts to sit upright. Certain movements cause a quick, sharp, dull pain lasts seconds. Hurts to take a deep breath and palpation. Denies similar pain in the past. Mother had IN age 36. Review of Systems General: No fatigue,weakness, fever, chills, recent illness, or change in appetite. Has been in her general physical state of health, reporting new onset depression since January 2017. HEENT: No HUSSEIN, no vision changes, no nasal congestion or drainage, no dysphasia CV: Continues to have chest pain as stated above. No palpitations, however reports frequent episodes of heart pounding, reporting to be regular accompanied with intermittent dizziness. RESP: No SOB, cough, wheeze, or recent URI. History of asthma, reports well controlled. GI: No nausea, vomiting, bowel changes, diarrhea, constipation, pain, distention , melena, or blood in the stool. No unintentional weight gain or weight loss. : No dysuria, urgency, frequency, history of kidney stones, or frequent UTIs. EXT: No lower leg edema, no paraesthesias MS: No discomfort or change in ROM. No recent injury or trauma. NEURO: No change in memory, difficulty with balance, LOC, motor/sensory deficits PSYCH: No anxiety. Reports history of depression with recent [place] act last week due to suicidal ideation (reports never having ever formulated a plan). No past suicidal attempts. No current suicidal ideations. SKIN: No rashes, no concerning lesions Past Family Social History Allergies: Coded Allergies: budesonide (Unverified Allergy, Unknown, HIVES, 11/06/16) formoterol (Unverified Allergy, Unknown, HIVES, 11/06/16) tramadol (Unverified Adverse Reaction, Mild, N/V, 11/06/16) Past Medical History Depression, asthma, hypertension, hyperlipidemia (recently diagnosed last week) Past Surgical History Cholecystectomy, tubal ligation, dental surgery Reported Medications Reported Meds & Active Scripts Active Trazodone (Trazodone HCl) 50 Mg Tab 50 Mg PO HS 30 Days Zoloft (Sertraline HCl) 50 Mg Tab 50 Mg PO DAILY 30 Days Norvasc (Amlodipine Besylate) 5 Mg Tab 5 Mg PO DAILY 30 Days Active Ordered Medications Current Medications Medications (Trade) Dose Ordered Sig/Missy Route Start Time Stop Time Status Last Admin (NS Flush) 2 ml UNSCH PRN IV FLUSH 04/24/17 21:30 (NS Flush) 2 ml BID IV FLUSH 04/25/17 09:00 (Tylenol) 500 mg Q4H PRN PO 04/24/17 21:30 ([place] 7.5-325 Mg) 1 tab Q4H PRN PO 04/24/17 21:30 (Morphine Inj) 2 mg Q4H PRN IV PUSH 04/24/17 21:30 (Zofran Inj) 4 mg Q6HR PRN IV PUSH 04/24/17 22:00 04/24/17 21:54 Family History Positive for early onset cardiovascular disease. Mother had myocardial infarction at age 36. With total of 5 MIs, mother alive and well. Social History No known hypertension or diabetes. Recently told she has hyperlipidemia last week. Appointment with a new PCP next Saturday. Current smoker, amount varies from 4 cigarettes-1 pack daily. Denies any alcohol or illegal drug use. Endorses a sedentary lifestyle. 3 children ages 8,14,15. Currently unemployed. Past cardiac testing None Physical Exam Vital Signs Vital Signs Date Time Temp Pulse Resp B/P (MAP) Pulse Ox O2 Delivery O2 Flow Rate FiO2 04/25/17 03:17 60 04/25/17 03:05 98.8 66 18 118/72 (87) 97 04/25/17 02:02 21 04/25/17 00:02 79 04/24/17 23:59 98.1 75 18 113/63 (80) 96 04/24/17 22:22 04/24/17 21:55 92 16 145/77 (99) 97 Room Air 04/24/17 20:41 14 98 Room Air 1/31/18 20:32 16 98 Room Air 04/24/17 20:32 98 Room Air 04/24/17 19:27 98.6 85 20 153/95 (114) 97 Physical Exam GENERAL: Alert WN, WD, NAD, pleasant, Caucasians, moderate obese female HEAD: NC, AT EYES: Sclera clear, conjunctiva without injection, pupils equal and round ENT: Mucous membranes pink and moist NECK: Supple, no masses, trachea midline CV: RRR, without murmur, rub, gallop, no JVD, S1-S2 no S3-S4. No carotid bruits. Chest wall pain easily reproduced with palpation. RESP: Clear lungs throughout bilateral, no crackles, wheeze, rhonchi, symmetrical chest rise, nonlabored, able to speak in full sentences ABD: Soft, NT, ND, no masses, positive bowel tones EXT: Pulses +24, trace bilateral pedal edema MS: Normal tone 4 extremities, no obvious deformities, full range of motion NEURO: CN II through CN XII grossly intact, motor strength 5/5, gait WNL PSYCH: A+O 3, pleasant affect, appropriate speech, mood, insight and judgment SKIN: Normal turgor, normal texture, no lesions, no rashes, brisk cap refill, even hair distribution Laboratory Laboratory Tests Test 04/24/17 20:30 04/24/17 23:46 04/25/17 02:50 White Blood Count 16.8 Red Blood Count 4.85 Hemoglobin 14.7 Hematocrit 41.2 Mean Corpuscular Volume 84.9 Mean Corpuscular Hemoglobin 30.3 Mean Corpuscular Hemoglobin Concent 35.6 Red Cell Distribution Width 13.8 Platelet Count 308 Mean Platelet Volume 8.4 Neutrophils (%) (Auto) 59.1 Lymphocytes (%) (Auto) 30.6 Monocytes (%) (Auto) 7.9 Eosinophils (%) (Auto) 1.8 Basophils (%) (Auto) 0.6 Neutrophils # (Auto) 9.9 Lymphocytes # (Auto) 5.1 Monocytes # (Auto) 1.3 Eosinophils # (Auto) 0.3 Basophils # (Auto) 0.1 CBC Comment DIFF FINAL Differential Comment Blood Urea Nitrogen 13 Creatinine 0.82 Random Glucose 102 Calcium Level 9.0 Magnesium Level 2.0 Sodium Level 137 Potassium Level 3.6 Chloride Level 104 Carbon Dioxide Level 25.2 Anion Gap 8 Estimat Glomerular Filtration Rate 79 Total Creatine Kinase 59 55 53 Troponin I LESS THAN 0.02 LESS THAN 0.02 LESS THAN 0.02 Result Diagram: 04/24/17202904/24/172029 Imaging Chest xray ordered early in day no acute cardiopulmonary process. (Patient seen 04/24/17 Course EKG NSR, normal axis, no st t segment changes Caprini VTE Risk Assessment Caprini VTE Risk Assessment: No/Low Risk (score <= 1) Caprini Risk Assessment Model Point Value = 1 Point Value = 2 Point Value = 3 Point Value = 5 Age 41-60 Minor surgery BMI > 25 kg/m2 Swollen legs Varicose veins or History of unexplained or recurrent spontaneous Oral contraceptives or hormone replacement Sepsis (< 1 month) Serious lung disease, including pneumonia (< 1 month) Abnormal pulmonary function Acute myocardial infarction Congestive heart failure (< 1 month) History of inflammatory bowel disease Medical patient at bed rest Age 61-74 Arthroscopic surgery Major open surgery (> 45 min) Laparoscopic surgery (> 45 min) Malignancy Confined to bed (> 72 hours) Immobilizing plaster cast Central venous access Age >= 75 History of VTE Family history of VTE Factor V Leiden Prothrombin [id number] Lupus anticoagulant Anticardiolipin antibodies Elevated serum homocysteine Heparin-induced thrombocytopenia Other congenital or acquired thrombophilia Stroke (< 1 month) Elective arthroplasty Hip, pelvis, or leg fracture Acute spinal cord injury (< 1 month) Prophylaxis Regimen Total Risk Factor Score Risk Level Prophylaxis Regimen 0-1 Low Early ambulation 2 Moderate Order ONE of the following: *Sequential Compression Device (SCD) *Heparin 5000 units SQ BID 3-4 Higher Order ONE of the following medications: *Heparin 5000 units SQ TID *Enoxaparin/Lovenox 40 mg SQ daily (WT < 150 kg, CrCl > 30 mL/min) *Enoxaparin/Lovenox 30 mg SQ daily (WT < 150 kg, CrCl > 10-29 mL/min) *Enoxaparin/Lovenox 30 mg SQ BID (WT < 150 kg, CrCl > 30 mL/min) AND/OR *Sequential Compression Device (SCD) 5 or more Highest Order ONE of the following medications: *Heparin 5000 units SQ TID (Preferred with Epidurals) *Enoxaparin/Lovenox 40 mg SQ daily (WT < 150 kg, CrCl > 30 mL/min) *Enoxaparin/Lovenox 30 mg SQ daily (WT < 150 kg, CrCl > 10-29 mL/min) *Enoxaparin/Lovenox 30 mg SQ BID (WT < 150 kg, CrCl > 30 mL/min) AND *Sequential Compression Device (SCD) Assessment and Plan Assessment and Plan #1 Atypical chest pain-admitted to chest pain center. Ruled out with 3 sets of EKGs, cardiac enzymes, and monitored on telemetry overnight. Reassurance provided discomfort suspected to be musculoskeletal, easily reproduced and possibility related to somatic symptoms. Seen and evaluated by Dr. Aba Sharif. Due to early onset cardiovascular family risk will proceed with exercise stress testing this morning. If unremarkable, plans to discharge home with follow up a PCP. Patient agreeable to plan of care. #2 Tobacco use-strongly encouraged and stressed importance of tobacco cessation. Instructed to quit smoking. #3 Musculoskeletal chest wall pain-Toradol 30 mg IV x1 dose. Upon discharge will encouraged use of heating pad to affect area and use of OTC NSAIDs for discomfort. Instructed to keep new PCP appointment scheduled this Saturday. #4 Depression-continue Zoloft as previously prescribed Renea Lopez Apr 25, 2017 08:45
[2017-04-25] MEDS ORDERED: SERTRALINE HCL 50 MG TAB PO SCH (09:00)
[2017-04-25] MEDS ORDERED: KETOROLAC TROMETHAMINE 30 MG/ML (IVP) VIAL IV PUSH ONE (09:00)
[2017-04-25] MEDS ORDERED: SODIUM CHLORIDE 0.9% FLUSH 10 ML FLUSH IV FLUSH SCH (09:00)
[2017-04-25] MEDS ORDERED: amLODIPine BESYLATE 5 MG TAB PO SCH (09:00)
[2017-04-25] MEDS ORDERED: RESP: ALBUTEROL 2.5 MG/3 ML NEB (PRN) NEB (09:00)
--- NOTE | 2017-04-25 10:13 | HHI.DCPOC ---
Discharge Care Plan Goals to Promote Your Health * To prevent worsening of your condition and complications * To maintain your health at the optimal level Directions to Meet Your Goals Take your medications as prescribed Follow your dietary instruction Follow activity as directed Keep your appointments as scheduled Take your immunizations and boosters as scheduled If your symptoms worsen call your PCP, if no PCP go to Urgent Care Center or Emergency Room Smoking is Dangerous to Your Health. Avoid second hand smoke Call the 24-hour hour crisis hotline for domestic abuse at Renea Lopez Apr 25, 2017 10:13
--- NOTE | 2017-04-25 10:53 | TR ---
Date Performed: 04/25/2017 Time Performed: 09:31:35 DOCTOR: Aba Sharif DRUG LIST: CLINICAL HISTORY: REASON FOR TEST: REASON FOR ENDING: OBSERVATION: CONCLUSION: Jony protocol completed. Stopped sec to reaching target heart rate and leg fatigue. Maximum EU=692 Target HR Achieved=87.0% Maximum NU=703/88 Total Exercise Time=7:19. No reprod chest pain. Normal bp response. No st t segment changes. Rare PVC at peak. Good exercise tolerance. Quick a nd unremarkable recovery. COMMENTS: Conclusion: Normal treadmill exercise. No evidence of ischemia.
--- NOTE | 2017-04-25 14:05 | EKG ---
Date Performed: 04/25/2017 Time Performed: 03:14:10 PTAGE: 36 years EKG: Sinus rhythm NONSPECIFIC T-WAVE ABNORMALITY BORDERLINE ECG PREVIOUS TRACING : 04/25/2017 00.05 Since previous tracing, no significant change noted DOCTOR: Aba Sharif Interpretating Date/Time 04/25/2017 14:03:43
--- NOTE | 2017-04-25 14:05 | EKG ---
Date Performed: 04/25/2017 Time Performed: 00:05:10 PTAGE: 36 years EKG: Sinus rhythm NONSPECIFIC T-WAVE ABNORMALITY PROLONGED QT INTERVAL ABNORMAL ECG PREVIOUS TRACING : 04/24/2017 19.37 Since previous tracing, no significant change noted DOCTOR: Aba Sharif Interpretating Date/Time 04/25/2017 14:04:05
== END 2017-04-25 13:25 | disposition home or self-care (01) ==
LOC: NEPE 19:21 → NEDA 21:37 → NEPGCP 22:23
PROVIDERS: ADMIT Internal Medicine Cardiovascular Disease; ATTEND Internal Medicine Cardiovascular Disease
DX: R07.89 Other chest pain (principal); R06.02 Shortness of breath; R11.0 Nausea; I10 Essential (primary) hypertension; E78.5 Hyperlipidemia, unspecified; E11.9 Type 2 diabetes mellitus without complications; F32.9 Major depressive disorder, single episode, unspecified; F17.210 Nicotine dependence, cigarettes, uncomplicated; R94.31 Abnormal electrocardiogram [ECG] [EKG]; J45.909 Unspecified asthma, uncomplicated; E78.00 Pure hypercholesterolemia, unspecified; Z82.49 Family history of ischemic heart disease and other diseases of the circulatory system
CPT/HCPCS: 80048; 82550; 83735; 84484; 85025; 93005; 93017; 96361; 96374; 96375; 99285; G0378; J1885; J2405; J7040